=== PATIENT | male | born 1940 | race Caucasian/White ===

== ENCOUNTER 2018-08-15 12:23 | Inpatient (IN) | payer MEDICARE ==
[~2018-08-15 12:23] MED LIST: ISOVUE-370 76%-LOCM 1 ML ONE
[2018-08-15] MEDS ORDERED: fentaNYL Citrate/PF 2,000 MCG in Sodium Chloride 0.9% 60 ML IV SCH ×2 (12:30→18:06)
[2018-08-15 12:41] LABS: #Lymphocytes 1.9 thou/uL (1.20-3.40); #Monocytes 0.8 thou/uL (0.11-0.59); #Neutrophils 9.7 thou/uL (1.40-6.50); %Basophils 0.1 % (0.0-1.0); %Eosinophils 0.2 % (0.0-10.0); %Lymphocytes 15.4 % (21.0-51.0); %Monocytes 6.5 % (0.0-10.0); %Neutrophils 77.8 % (42.0-75.0); Hemoglobin 9.5 g/dL (14.0-18.0); Mean Corpuscular HGB CONC 31.2 g/dL (32.0-36.0); Mean Corpuscular Hemoglobin 29.5 pg (27.0-31.0); Mean Corpuscular Volume 94.5 fL (78.0-98.0); Mean Platelet Volume 6.1 fL (7.4-10.4); Platelet Count 284 thou/uL (130-400); RBC Distribution Width 13.1 % (11.5-14.5); Red Blood Cell (RBC) Count 3.21 mill/uL (4.70-6.10); White Blood Cell (WBC) Count 12.5 thou/uL (4.8-10.8)
[2018-08-15 12:56] LABS: Actual Bicarbonate (HCO3a) 18.1 mEq/L (22-28); Analyzer IN Cardio ER; Base Excess (BEa) -9.1 mEq/L (-2.0 to +3.0); CO2 Tension 44.8 mmHg (35.0-45.0); Calcium, Ionized 1.12 mmol/L (1.12-1.30); Carboxyhemoglobin (COHb) 0.9 gm% (0.0-3.0); Hemoglobin (Hb) 10.5 g/dL (14.0-18.0); O2 Tension (PaO2) 108.4 mmHg (> 70.0); Potassium - ABG Lab 3.45 mmol/L (3.70-5.30)
[2018-08-15 12:57] LABS: Bilirubin Negative (Negative); Blood, Urine Negative (Negative); Clarity CLEAR (Clear); Glucose, Urine (Dipstick) Negative (Negative); Leukocyte Negative (Negative); Nitrite Negative (Negative); Protein, Urine (Dipstick) Negative (Neg-Trace); Specific Gravity, Urine 1.012 (1.002-1.036)
[2018-08-15 12:58] LABS: ALT (SGPT) 17 U/L (8-55); AST (SGOT) 32 U/L (5-34); Albumin 2.3 g/dL (3.4-4.8); Alkaline Phosphatase 170 U/L (40-150); Anion Gap 15 mmol/L (10-20); BUN (Urea Nitrogen) 12 mg/dL (8.4-25.7); Calc. Creatinine Clearance 0 mL/min (70-130); Calcium 7.5 mg/dL (7.8-10.44); Carbon Dioxide 16 mmol/L (23-31); Chloride 110 mmol/L (98-107); Estimated GFR-MDRD Greater than 90; Globulin 2.3 g/dL (2.4-3.5); Glucose 126 mg/dL (83-110); Potassium 3.7 mmol/L (3.5-5.1); Protein, Total 4.6 g/dL (5.8-8.1); Sodium 137 mmol/L (136-145)
[2018-08-15] MEDS ORDERED: cefTRIAXone\\ROCEPHIN 2 GM VIAL ONE (12:58)
[2018-08-15] MEDS ORDERED: Azithromycin 500 MG VIAL ONE (12:58)
[2018-08-15 12:59] LABS: pH, Arterial 7.23 (7.35-7.45)
[2018-08-15 13:00] LABS: Puncture Site L.R.
--- NOTE | 2018-08-15 13:32 | RAD ---
RADIOGRAPH CHEST 1 VIEW: Date: 08-15-18 Time: 12:35 P.M. HISTORY: 78-year-old male with cough. Status post intubation. COMPARISON: 02-08-16 FINDINGS: There is a new finding of diffuse bilateral patchy mixed interstitial and alveolar infiltrates throug hout all lung parker. There is a confluent mass-like opacity overlying the right parahilar midlung zo ne, and perhaps a larger 6 cm mass overlying the medial aspect of left midlung zone with possible cav itation (versus artifact). No cardiomegaly. An NG tube has been placed with sideport overlying the ex pected region of the EG junction and distal tip in the left upper quadrant. Endotracheal tube is in p lace with distal tip overlying the midthoracic trachea. No cardiomegaly. This is a supine position wh ich would be insensitive for pneumothorax detection. IMPRESSION: 1. Bilateral interstitial and alveolar infiltrates. Possibilities include noncardiogenic pulmonary ed andria and bilateral pneumonia. 2. Possible bilateral pulmonary masses. 3. Recommend CT of the chest for further evaluation. 4. Status post endotracheal tube and nasogastric tube placement. SADIE POS: SHAMIKA
--- NOTE | 2018-08-15 14:07 | CT ---
CT PULMONARY ANGIOGRAM WITH IV CONTRAST AND 3D POST PROCESSING: HISTORY: Respiratory failure. FINDINGS: There is good contrast opacification in the pulmonary arterial vasculature without filling defects to suggest pulmonary embolism. The thoracic aorta is well opacified. There are vascular calcification s. There is no evidence of aneurysmal dilatation or thoracic aortic dissection. No pericardial effusion is seen. There are small bilateral pleural effusions. Adjacent cons olidative changes are present. Emphysematous changes are noted in the lung parker bilaterally. Endo tracheal and nasogastric tubes are present. There is a large area of consolidation in the left lower lobe. IMPRESSION: No CT evidence of pulmonary embolism. POS: C
--- NOTE | 2018-08-15 14:13 | CT ---
CT BRAIN WITHOUT CONTRAST: History: Altered mental status. FINDINGS: There are changes of cortical atrophy and chronic small vessel ischemic disease. The ventricular size is appropriate and the bilateral cisterns patent. No evidence of acute infarct, hemorrhage, midline shift, or abnormal extraaxial fluid collections are seen. The bony calvarium is intact. There is mucosal disease in the paranasal sinuses. IMPRESSION: No CT evidence of acute intracranial process. POS: [facility]
[2018-08-15] MEDS ORDERED: Norepinephrine 8 MG/0.9% NS 250 ML IVPB PRN (14:44)
[2018-08-15] MEDS ORDERED: hydrALAZINE 20 MG/ML VIAL SLOW IVP PRN (14:44)
[2018-08-15] MEDS ORDERED: Bisacodyl 10 MG SUPP PR PRN (14:44)
[2018-08-15] MEDS ORDERED: Acetaminophen 325 MG TAB PER TUBE PRN (14:44)
[2018-08-15] MEDS ORDERED: Metoclopramide HCl 10 MG/2 ML VIAL IVP PRN (14:44)
[2018-08-15] MEDS ORDERED: Loratadine 10 MG TAB PER TUBE PRN (14:44)
[2018-08-15] MEDS ORDERED: Ondansetron PF 4 MG/2 ML Vial IVP PRN (14:44)
[2018-08-15] MEDS ORDERED: Artificial Tear Sol 15 ML BOT EA EYE PRN (14:44)
[2018-08-15] MEDS ORDERED: Sodium Chloride 0.65% Nasal 44 ML BOT EA NARE PRN (14:44)
[2018-08-15] MEDS ORDERED: Eucerin (Mineral Oil/Petrolatum,White) 30 gm Jar TOP PRN (14:44)
[2018-08-15] MEDS ORDERED: Diabetic Tussin 200 MG/10 ML UDCUP PER TUBE PRN (14:44)
--- NOTE | 2018-08-15 15:01 | HP ---
PRIMARY CARE PHYSICIAN: Carl Moran MD REASON FOR ADMISSION: Septic shock and acute respiratory failure. HISTORY OF PRESENT ILLNESS: A 78-year-old male with history of heavy smoking as well as peripheral vascular disease, who was brought to ER after intubation by paramedics. The patient's brother and other family member present at bedside in the emergency room, who provided some history. The patient lives with his brother. The patient was having cough for a period of time. He was not having any noted measurable fever at home, but he was coughing junky stuff. Brother is not sure about flu vaccination. As per brother, he was fine yesterday up to his normal level of health. The patient is pretty much wheelchair bound because he offer right above-knee amputation. This morning, the patient was unresponsive and paramedics was called. As per paramedics, his GCS score was only 7 and he was wheezing in both lung parker, and he was saturating only 75%. He was tachypneic, tachycardic, and that is why, paramedics decided to intubate on the scene, and subsequently he was brought to ER. In the emergency room, the patient was initially vitals stable. He was tachycardic and tachypneic on vent. He was afebrile, but his blood pressure dropped and required central line placement. REVIEW OF SYSTEMS: All review of systems tried to review with the patient, but unable to review because of intubated status. 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 PAST SURGICAL HISTORY: History of recurrent pneumonia, back surgery, right above-knee amputation, right hip surgery, and stent placement, unsure in lower extremity or in cardiac. PAST PSYCHIATRIC HISTORY: Reviewed and negative. SOCIAL HISTORY: The patient has heavy smoking history about one pack per day. No history of alcohol or other illicit drug abuse. FAMILY HISTORY: Positive for cancer among several family members. EMERGENCY ROOM COURSE: The patient has received Rocephin, azithromycin, and IV fluid. ALLERGIES: NO KNOWN DRUG ALLERGIES. CURRENT HOME MEDICATIONS: The patient does not have medication with him at this point, but based on the patient's brother, he is taking, 1. Aspirin 81 mg daily. 2. Lipitor 10 mg daily. 3. Metoprolol 25 mg p.o. b.i.d. PHYSICAL EXAMINATION: VITAL SIGNS: Currently, blood pressure 72/50, pulse 106, respiratory rate 17, temperature 97.3, saturation 100% on ventilator, and weight 54 kg. GENERAL: The patient is intubated, currently unresponsive, poorly hygienic. HEAD: Normocephalic and atraumatic. EYES: Pupils small and reactive. ENT: Poor dentition. Endotracheal tube in place. Dry appearing mucous membrane, foul smelling. NECK: Supple. No JVD. No thyromegaly. LUNGS: Bilateral coarse breath sounds with wheezing, end-expiratory. Coarse rales. CARDIAC: S1, S2 regular. Tachycardia. No murmur. No gallop. No rub. ABDOMEN: Soft. Bowel sounds present. No distention. No peritoneal sign. EXTREMITIES: Upper extremities, passive movement of all joints are normal. Lower extremities, right above-knee amputation. Surgical scar noted on right lower extremity. Delayed capillary filling on left lower extremity. Unable to feel pulsation in left lower extremity with toenail unhealthy. NEUROLOGIC: Unable to assess at this point because he is sedated and intubated. SKIN: One bruise noted on left lower extremity. PSYCHIATRIC: Unable to assess. SIGNIFICANT LABORATORY DATA: CT brain based on my review, no acute intracranial process. Chest x-ray based on my review, diffuse bilateral perihilar infiltrates. CT angiography negative for pulmonary embolism, consistent with infiltrative process. CBC: WBC 12.5, hemoglobin 9.5, and platelet 284. ABG, pH 7.23, pCO2 of 44.8, pO2 of 108.4, bicarbonate 18.1, and saturation 95.9. BMP: Sodium 137, potassium 3.7, chloride 110, carbon dioxide 16, anion gap 15, BUN 12, creatinine 0.82, glucose 126, and calcium 7.5. Lactic acid 3.1. LFT: AST 32, ALT 17, alkaline phosphatase 170, and albumin 2.3. Urinalysis unremarkable. ASSESSMENT AND PLAN: 1. Acute respiratory failure with hypoxia. The patient is currently intubated. Pulmonary group will be consulted to manage ventilator because of underlying infiltrative and consolidative process as well as the patient has emphysematous changes in lung parker bilaterally contributing to his respiratory failure. 2. Septic shock. The patient is hypotensive and tachycardic. He has leukocytosis. Source of infection is lung infection. The patient will be kept on broad-spectrum antibiotic therapy. Levophed will be given as needed. The patient will be given IV fluid as per protocol for septic shock. 3. Metabolic and lactic acidosis due to septic shock. We will repeat lactic acid level later on today and as well as tomorrow morning. The patient will be kept on broad-spectrum antibiotic therapy as mentioned above and we will monitor in CCU. 4. Bilateral pneumonia, multifocal, rule out lung abscess. The patient will be kept on broad-spectrum antibiotic therapy with vancomycin, Zosyn, and Levaquin. Pharmacy will adjust dose based on renal function. 5. Chronic obstructive pulmonary disease. We will continue with DuoNeb q.6 hourly. This is not a confirmed diagnosis, but based on emphysema on CT angiography, we will treat with DuoNeb therapy every 6 hourly and Solu-Medrol 40 mg IV q.6 hourly. We will check random cortisol level and TSH as a part of sepsis workup. 6. Hypoalbuminemia due to protein-calorie malnutrition. We will start new enteral tube feeding as early as possible. 7. Peripheral vascular disease with a history of right above-knee amputation with poor pulsation on the left lower extremity as well, likely due to smoking related. At this point, we will continue aspirin and statin therapy. 8. Dyslipidemia. We will continue Lipitor as per home dosage. 9. Tobacco abuse disorder. 10. Deep vein thrombosis prophylaxis, Lovenox 40 mg subcu daily. 11. Gastrointestinal prophylaxis, Pepcid 20 mg IV b.i.d. CODE STATUS: The patient is full code, that is confirmed with the patient's brother and other family member at bedside. CONDITION: Critical. PROGNOSIS: Guarded. TIME SPENT: Total time spent providing critical care to this patient, 31 minutes. Job ID: [id number]
--- NOTE | 2018-08-15 15:41 | RAD ---
CHEST ONE VIEW: History: Tube and central line placement. Comparison: CT examination of the chest, same day. FINDINGS: Patient is intubated with endotracheal tube tip above the evelyn. Superimposed lower lobe pneumonia. IMPRESSION: Uncomplicated placement of lines and tubes as above. POS: [facility]A
[2018-08-15] MEDS: Piperacillin/Tazobactam 3.375 GM in Sodium Chloride 0.9% 100 ML IVPB SCH ×2 (16:36→21:12)
[2018-08-15] MEDS: Sodium Chloride 0.9% 1,000 ML IV SCH (16:36)
[2018-08-15] MEDS: Vancomycin HCl 1 GM in Premix Bag 1 BAG IVPB SCH (16:44)
--- NOTE | 2018-08-15 17:02 | CON ---
DATE OF CONSULTATION: HISTORY OF PRESENT ILLNESS: This is a 78-year-old gentleman, who underwent an aortobifemoral bypass by in 2004 for a nonhealing wound in the right lower extremity involved with polio. He then re-presented in 2016 with a gangrenous right foot and occluded right limb of the aortobifemoral graft. He underwent a right leg amputation by at that time. He followed up in the office on one occasion and then did not follow up further for carotid artery disease with a carotid ultrasound in 2016 demonstrating a 50% to 69% left carotid stenosis. He presented to the emergency room today with altered mental status, elevated white count, and hypotensive. He was intubated, placed on Levophed and I was called due to absent Doppler signals in his left lower extremity that was cold to touch. MEDICATIONS: I have reviewed his CT scan showing advanced emphysematous lung disease bilaterally. He has a CT scan from 2016, which I have reviewed showing a patent left limb of the aortofemoral graft, patent SFA, and significant calcific disease of the popliteal artery in 1 or 2 locations. Chest x-ray today shows bilateral infiltrates. Home medications obtained from the records since the patient is not able to respond and has no family present include; 1. Metoprolol. 2. Inhalers. 3. Sublette. 4. Lipitor. 5. Aspirin. PHYSICAL EXAMINATION: GENERAL: On examination, he is a thin gentleman, intubated, asleep. VITAL SIGNS: Heart rate of 110. NECK: Carotid bruits present. CARDIAC: Tachycardia. No murmurs. ABDOMEN: Scaphoid. Well-healed midline incision. EXTREMITIES: Palpable left femoral pulse, absent right femoral pulse. Doppler signal present biphasic in the popliteal and dorsalis pedis. The left leg is cool to touch with some mottling, probably representing shock state rather than acute ischemia. ASSESSMENT AND PLAN: At this time, I do not think the left lower extremity is probably anything other than baseline for him and certainly is not responsible for his current situation. Job ID: [id number]
[2018-08-15] MEDS: methylPREDNISolone Sod Succ 40 MG VIAL IVP SCH ×2 (17:27→23:54)
[2018-08-15] MEDS ORDERED: Fentanyl BOLUS 250 ML IVPB PRN (18:06)
[2018-08-15] MEDS ORDERED: Propofol 1,000 MG/100 ML VIAL IV PRN (18:06)
[2018-08-15] MEDS ORDERED: Morphine 2 MG/ML SYRINGE SLOW IVP PRN (18:06)
[2018-08-15] MEDS ORDERED: DISCONTINUE PREVIOUS NARCOTIC PAIN MEDICATIONS AND BENZODIAZEPINES FS SCH (18:06)
[2018-08-15] MEDS ORDERED: Propofol BOLUS 1,000 MG/100 ML VIAL IV PRN (18:06)
[2018-08-15] MEDS ORDERED: Lorazepam 2 MG/ML VIAL SLOW IVP PRN (18:06)
--- NOTE | 2018-08-15 20:44 | CON ---
DATE OF CONSULTATION: 08/15/2018 HISTORY OF PRESENT ILLNESS: Hiro Wright is an unfortunate 78-year-old male who underwent a high amputation on the right lower extremity several years back. Apparently, he has been living with his brother since then. He presented today with hypotension and respiratory failure requiring intubation. I was consulted for assistance in the ICU. Apparently, he was fine until this morning when he became unresponsive. PAST MEDICAL HISTORY: Remarkable for 1. Lipid disorder. 2. Hypertension. 3. Polio. 4. Peripheral vascular disease. 5. [id number] amputation on the right. 6. Back surgery in the past. 7. Hip surgery. 8. History of vascular stent at some point. He continues to smoke in spite of his vascular history. REVIEW OF SYSTEMS: Not obtainable. He is not drinking. He is not using drugs reportedly. Reviewing old records, the Dr. Casarez's notes in 2016 say he has had an aortobifemoral bypass. CT angiogram in 2016 of the aorta and lower extremity showed occlusion of the right aortofemoral bypass graft limb. There was chronic collateral reconstitution of the distant common femoral artery with a patent profunda and then severe disease, superficial femoral artery, popliteal artery and only one vessel runoff. Review of systems as mentioned is not obtainable since he is intubated. He is on Levophed. PHYSICAL EXAMINATION: VITAL SIGNS: Pressure was 100 systolic when he arrived in the unit, heart rate was in the 90s, respiratory rate was in the teens. HEENT: Pupils react. Sclerae are anicteric. NECK: Supple. LUNGS: Remarkable for coarse rhonchi, he has copious secretions. HEART: Regular rhythm. He has grade 2/6 systolic murmur. ABDOMEN: Soft. He appears to have a left lower quadrant mass on exam. EXTREMITIES: His right AKA stump is healed. His left lower extremity is extremely mottled, but he has a Doppler pulse in his foot. LABORATORY DATA: White count 12.5, hemoglobin 9.5, platelets 284. Sodium 137, potassium 3.7, chloride 110, bicarb 16, BUN 12, creatinine 0.82. He has virtually anuric today. PH 7.23, CO2 44, PO2 108. CT of the chest with angiogram done in the emergency room shows a dense alveolar infiltrate in his left lower lobe with bilateral effusions. He has no evidence of pulmonary embolism. IMPRESSION: 1. Pneumonia with clinical sepsis. 2. Respiratory failure with probable chronic obstructive pulmonary disease. 3. History of tobacco use, reportedly ongoing with severe peripheral vascular disease status post aortobifemoral bypass and amputation of his right lower extremity, above the knee. 4. ? abdominal mass. 5. Encephalopathy secondary to sepsis, it is unclear whether he was severely hypoxic or not at the scene. We will continue supportive critical care, broad-spectrum antimicrobial therapy, nebulizer treatments, steroids, at some point in time, unless his abdominal mass is stool and goes away with a bowel movement, we need to image his abdomen. Prognosis is quite guarded. CRITICAL CARE TIME: 30 minutes. Job ID: [id number] MTDD
[2018-08-15] MEDS: Famotidine/PF 20 mg/2ml Vial SLOW IVP SCH (21:12)
[2018-08-15] MEDS: Atorvastatin Calcium 10 MG TAB PER TUBE SCH (23:53)
[2018-08-16] MEDS: Sodium Chloride 0.9% 1,000 ML IV SCH ×3 (02:24→23:37)
[2018-08-16] MEDS: Piperacillin/Tazobactam 3.375 GM in Sodium Chloride 0.9% 100 ML IVPB SCH ×4 (02:30→20:58)
[2018-08-16 05:39] LABS: ALT (SGPT) 22 U/L (8-55); AST (SGOT) 41 U/L (5-34); Albumin 2.3 g/dL (3.4-4.8); Alkaline Phosphatase 143 U/L (40-150); Anion Gap 13 mmol/L (10-20); BUN (Urea Nitrogen) 15 mg/dL (8.4-25.7); Bilirubin, Total 0.4 mg/dL (0.2-1.2); Calc. Creatinine Clearance 64 mL/min (70-130); Calcium 8.3 mg/dL (7.8-10.44); Carbon Dioxide 17 mmol/L (23-31); Chloride 112 mmol/L (98-107); Estimated GFR-MDRD Greater than 90; Globulin 2.8 g/dL (2.4-3.5); Glucose 151 mg/dL (83-110); Potassium 4.1 mmol/L (3.5-5.1); Protein, Total 5.1 g/dL (5.8-8.1); Sodium 138 mmol/L (136-145)
[2018-08-16 05:57] LABS: Band 21 % (5-11); Hemoglobin 9.9 g/dL (14.0-18.0); Lymphocytes 14 % (21-51); MDiff Complete? YES; Mean Corpuscular HGB CONC 31.4 g/dL (32.0-36.0); Mean Corpuscular Hemoglobin 29.6 pg (27.0-31.0); Mean Corpuscular Volume 94.2 fL (78.0-98.0); Mean Platelet Volume 6.4 fL (7.4-10.4); Monocytes 3 % (0-10); Neutrophil 62 % (42-75); Platelet Count 249 thou/uL (130-400); RBC Distribution Width 13.3 % (11.5-14.5); Red Blood Cell (RBC) Count 3.35 mill/uL (4.70-6.10); White Blood Cell (WBC) Count 8.3 thou/uL (4.8-10.8)
[2018-08-16] MEDS: methylPREDNISolone Sod Succ 40 MG VIAL IVP SCH ×4 (06:13→23:41)
[2018-08-16 07:39] LABS: Actual Bicarbonate (HCO3a) 18.7 mEq/L (22-28); Base Excess (BEa) -6.1 mEq/L (-2.0 to +3.0); CO2 Tension 34.2 mmHg (35.0-45.0); Calcium, Ionized 1.28 mmol/L (1.12-1.30); Carboxyhemoglobin (COHb) 0.6 gm% (0.0-3.0); Hemoglobin (Hb) 9.9 g/dL (14.0-18.0); O2 Tension (PaO2) 72.2 mmHg (> 70.0); Potassium - ABG Lab 4.09 mmol/L (3.70-5.30); pH, Arterial 7.36 (7.35-7.45)
[2018-08-16 07:44] LABS: Puncture Site RR
--- NOTE | 2018-08-16 07:47 | RAD ---
SINGLE VIEW OF CHEST: Date: 08/16/18 COMPARISON: 08/15/18. HISTORY: Daily chest x-ray on a CCU patient with respiratory failure. FINDINGS: Single view of chest shows a normal sized cardiomediastinal silhouette. Endotracheal tube and NG tube are unchanged in position. There is a left subclavian central venous catheter with its tip in the arenas perior vena cava. No pneumothorax is seen. Diffuse mixed infiltrates are seen in the lungs. IMPRESSION: Stable multifocal infiltrates. POS: C
[2018-08-16] MEDS: Enoxaparin Sodium 40 MG/0.4 ML SYRINGE SC SCH (07:59)
[2018-08-16] MEDS: Famotidine/PF 20 mg/2ml Vial SLOW IVP SCH ×2 (07:59→20:58)
[2018-08-16] MEDS: Aspirin Chewable 81 MG TAB PER TUBE SCH (08:00)
--- NOTE | 2018-08-16 09:54 | PDOC.PN ---
- Subjective Encounter Start Date: 08/16/18 Encounter Start Time: 11:10 Subjective: Patient stable on the vent. No changes overnight. - Objective Resuscitation Status - Order Detail: 08/15/18 14:03 Resuscitation Status Routine Resuscitation Status: FULL: Full Resuscitation MAR Reviewed: Yes Vital Signs & Weight: Vital Signs (12 hours) Temp Pulse Resp BP 08/16/18 08:00 18 08/16/18 07:44 98.3 F 08/16/18 07:36 89 100/57 L 08/16/18 06:00 18 08/16/18 04:00 98.2 F 18 08/16/18 02:16 78 101/60 08/16/18 02:00 18 08/16/18 00:00 99.0 F 18 08/15/18 22:14 83 106/62 08/15/18 22:00 18 Weight Weight 115 lb 1.301 oz Most Recent Monitor Data Heart Rate from ECG 75 NIBP 98/56 NIBP BP-Mean 70 Respiration from ECG 18 SpO2 97 I&O: 08/15/18 08/16/18 08/17/18 06:59 06:59 06:59 Intake Total 1892.6 46.1 Output Total 650 50 Balance 1242.6 -3.9 Result Diagrams: 08/16/18 05:05 08/16/18 05:05 Phys Exam - Physical Examination HEENT: moist MMs Respiratory: no wheezing, no rales, no rhonchi Cardiovascular: RRR Gastrointestinal: soft, positive bowel sounds right AKA Neurological: moves all 4 limbs Deviation from normal: sedated by arousable on vent Dx/Plan (1) Acute respiratory failure with hypoxia Code(s): J96.01 - ACUTE RESPIRATORY FAILURE WITH HYPOXIA Status: Acute Comment: on the ventilator, Dr. Rose following (2) Septic shock Code(s): A41.9 - SEPSIS, UNSPECIFIED ORGANISM; R65.21 - SEVERE SEPSIS WITH SEPTIC SHOCK Status: Acute Comment: Hypotension requiring Levophed, on Vanc and Zosyn since 08/15/2018 (3) Lactic acidosis Code(s): E87.2 - ACIDOSIS Status: Resolved (4) Bacterial pneumonia Code(s): J15.9 - UNSPECIFIED BACTERIAL PNEUMONIA Status: Acute (5) COPD (chronic obstructive pulmonary disease) Status: Acute Qualifiers: COPD type: COPD with acute exacerbation Qualified Code(s): J44.1 - Chronic obstructive pulmonary disease with (acute) exacerbation (6) Moderate protein-calorie malnutrition Code(s): E44.0 - MODERATE PROTEIN-CALORIE MALNUTRITION Status: Acute (7) Peripheral vascular disease Code(s): I73.9 - PERIPHERAL VASCULAR DISEASE, UNSPECIFIED Status: Chronic Comment: no acute ischemia of remaining leg per Dr. Whatley (8) Dyslipidemia Code(s): E78.5 - HYPERLIPIDEMIA, UNSPECIFIED Status: Chronic (9) Tobacco abuse disorder Code(s): Z72.0 - TOBACCO USE Status: Chronic - Plan cont current plan of care, continue antibiotics, respiratory therapy, DVT proph w/lovenox, DVT proph w/SCDs * . - Discharge Day Encounter end time: 11:20 Pulmonology Consult: Meds - Medications MAR Reviewed: Yes Medications: Current Medications Acetaminophen (Tylenol) 650 mg PER TUBE Q4H PRN PRN Reason: Headache/Fever/Mild Pain (1-3) Albuterol/Ipratropium (Duoneb) 3 ml NEB [id number] [facility] Last Admin: 08/16/18 07:02 Dose: 3 ml Artificial Tears (Tears Renewed 15ml Bottle) 2 drop EA EYE PRN PRN PRN Reason: Dry Eyes Aspirin (Aspirin Chewable) 81 mg PER TUBE DAILY [facility] Last Admin: 08/16/18 08:00 Dose: 81 mg Atorvastatin Calcium (Lipitor) 10 mg PER TUBE HS [facility] Last Admin: 08/15/18 23:53 Dose: 10 mg Bisacodyl (Dulcolax) 10 mg AL DAILYPRN PRN PRN Reason: Constipation Enoxaparin Sodium (Lovenox) 40 mg SC 0900 [facility] Last Admin: 08/16/18 07:59 Dose: 40 mg Famotidine (Pepcid) 20 mg SLOW IVP Q12HR [facility] Last Admin: 08/16/18 07:59 Dose: 20 mg Guaifenesin (Robitussin Sf) 200 mg PER TUBE Q4H PRN PRN Reason: Cough Hydralazine HCl (Apresoline) 10 mg SLOW IVP Q4H PRN PRN Reason: SBP > 180 and HR < 70 Piperacillin Sod/Tazobactam (Sod 3.375 gm/ Sodium Chloride) 100 mls @ 200 mls/ hr IVPB 0300,0900,1500,2100 [facility] Last Admin: 08/16/18 07:59 Dose: 100 mls Vancomycin HCl 1 gm/ Device 200 mls @ 200 mls/hr IVPB 1700 [facility] Last Admin: 08/15/18 16:44 Dose: Not Given Levofloxacin 500 mg/ Device 100 mls @ 100 mls/hr IVPB Q24HR [facility] Last Admin: 08/15/18 16:44 Dose: 100 mls Norepinephrine Bitartrate (Levophed) 250 mls @ 0 mls/hr IVPB PRN PRN; Protocol PRN Reason: To maintain MAP > 65 Sodium Chloride (Normal Saline 0.9%) 1,000 mls @ 125 mls/hr IV .Q8H [facility] Last Admin: 08/16/18 02:24 Dose: 1,000 mls Fentanyl Citrate 2,000 mcg/ (Sodium Chloride) 100 mls @ 0 mls/hr IV INF [facility]; Protocol Stop: 09/14/18 18:06 Last Admin: 08/15/18 20:19 Dose: 100 mls Fentanyl Citrate (Fentanyl Bolus) 250 mls @ 0 mls/hr IVPB PRN PRN PRN Reason: Breakthrough pain/agitation Stop: 09/14/18 18:06 Loratadine (Claritin) 10 mg PER TUBE DAILYPRN PRN PRN Reason: Sinus Symptoms Lorazepam (Ativan) 2 mg SLOW IVP Q1H PRN PRN Reason: Breakthrough agitation Stop: 09/14/18 18:06 Methylprednisolone Sodium Succinate (Solu-Medrol) 40 mg IVP Q6HR [facility] Last Admin: 08/16/18 06:13 Dose: 40 mg Metoclopramide HCl (Reglan) 5 mg IVP Q4H PRN PRN Reason: Nausea Mineral Oil/White Petrolatum (Eucerin Cream) 0 gm TOP BIDPRN PRN PRN Reason: Dry Skin Miscellaneous Medication (Pharmacy To Dose) 1 each IVPB PRN PRN PRN Reason: Pharmacy to dose Morphine Sulfate (Morphine) 2 mg SLOW IVP Q1H PRN PRN Reason: BREAKTHROUGH PAIN/Agitation Stop: 09/14/18 18:06 Discontinue Previous Narcotic Pain Medications And Benzodiazepines 1 each FS .ONE [facility] Stop: 09/14/18 18:06 Ondansetron HCl (Zofran) 4 mg IVP Q6H PRN PRN Reason: Nausea/Vomiting Propofol (Diprivan) 1,000 mg IV INF PRN; Protocol PRN Reason: TO ACHIEVE GOAL RASS Stop: 09/14/18 18:06 Propofol (Diprivan Bolus) 20 mg IV Q5MIN PRN PRN Reason: BREAKTHROUGH AGITATION Stop: 09/14/18 18:06 Sodium Chloride ([place] Nasal Kathryn 0.65%) 0 ml EA NARE QIDPRN PRN PRN Reason: Nasal Congestion - Allergies Allergies/Adverse Reactions: Allergies Allergy/AdvReac Type Severity Reaction Status Date / Time No Known Allergies Allergy Verified 08/15/18 17:15
--- NOTE | 2018-08-16 17:03 | PRG ---
DATE OF SERVICE: 08/16/2018 SUBJECTIVE: Hiro Wright is really rallied overnight. He is off pressors this morning. OBJECTIVE: VITAL SIGNS: Blood pressure is in the 120s, heart rate 83, respiratory rate 18, oximetry is 97. Intake and output +1242. GENERAL: He will remain mechanically ventilated. He is awake. He moves extremities equally with the exception of his right lower extremity. LUNGS: Remarkable for dramatically improved rhonchi compared to yesterday. HEART: Regular rhythm. ABDOMEN: Soft. EXTREMITIES: Left lower extremity is cool. LABORATORY DATA: White count 8.3, hemoglobin 9.9, platelets 249. Sodium 138, potassium 4.1, chloride 112, bicarb 17, BUN 15, creatinine 0.73, glucose 151. IMPRESSION: 1. Pneumonia with respiratory failure, most likely secondary to his inability to clear secretions. 2. Chronic obstructive pulmonary disease with ongoing tobacco use. 3. Cachexia. 4. Status post high amputation of his right lower extremity secondary to peripheral vascular disease after a failed aortobifem bypass. 5. Mild hyperchloremic acidosis. PH today 7.36, CO2 is 34, pO2 is 72. 6. Bilateral infiltrates on today's chest x-ray. 7. I suspect we will be able to do a spontaneous breathing trial in the morning. I met with brothers and answered all their questions. One of his brothers is a patient of mine. Overall I am pleased with his progress. CRITICAL CARE TIME: 30 minutes. Job ID: [id number]
[2018-08-16] MEDS: Vancomycin HCl 1 GM in Premix Bag 1 BAG IVPB SCH (18:16)
[2018-08-16] MEDS: Atorvastatin Calcium 10 MG TAB PER TUBE SCH (20:58)
[2018-08-17] MEDS: Piperacillin/Tazobactam 3.375 GM in Sodium Chloride 0.9% 100 ML IVPB SCH ×4 (02:20→21:35)
[2018-08-17] MEDS: methylPREDNISolone Sod Succ 40 MG VIAL IVP SCH ×3 (05:04→20:06)
[2018-08-17 05:19] LABS: ALT (SGPT) 19 U/L (8-55); AST (SGOT) 30 U/L (5-34); Albumin 2.4 g/dL (3.4-4.8); Alkaline Phosphatase 101 U/L (40-150); Anion Gap 12 mmol/L (10-20); BUN (Urea Nitrogen) 14 mg/dL (8.4-25.7); Bilirubin, Total 0.4 mg/dL (0.2-1.2); Calc. Creatinine Clearance 79 mL/min (70-130); Calcium 8.5 mg/dL (7.8-10.44); Carbon Dioxide 17 mmol/L (23-31); Chloride 115 mmol/L (98-107); Estimated GFR-MDRD Greater than 90; Globulin 2.6 g/dL (2.4-3.5); Glucose 130 mg/dL (83-110); Potassium 3.2 mmol/L (3.5-5.1); Sodium 141 mmol/L (136-145)
[2018-08-17 05:35] LABS: Band 14 % (5-11); Burr Cells SLIGHT = 2-5 cells (100X) (0-1/hpf); Hemoglobin 9.2 g/dL (14.0-18.0); Lymphocytes 4 % (21-51); MDiff Complete? YES; Mean Corpuscular HGB CONC 31.2 g/dL (32.0-36.0); Mean Corpuscular Hemoglobin 29.5 pg (27.0-31.0); Mean Corpuscular Volume 94.6 fL (78.0-98.0); Mean Platelet Volume 6.5 fL (7.4-10.4); Monocytes 6 % (0-10); Neutrophil 76 % (42-75); Platelet Count 199 thou/uL (130-400); RBC Distribution Width 13.4 % (11.5-14.5); White Blood Cell (WBC) Count 7.1 thou/uL (4.8-10.8)
[2018-08-17 06:44] LABS: Actual Bicarbonate (HCO3a) 20.2 mEq/L (22-28); Base Excess (BEa) -3.8 mEq/L (-2.0 to +3.0); CO2 Tension 32.3 mmHg (35.0-45.0); Calcium, Ionized 1.27 mmol/L (1.12-1.30); Carboxyhemoglobin (COHb) 0.5 gm% (0.0-3.0); Hemoglobin (Hb) 9.5 g/dL (14.0-18.0); O2 Tension (PaO2) 86.5 mmHg (> 70.0); Potassium - ABG Lab 3.18 mmol/L (3.70-5.30); pH, Arterial 7.41 (7.35-7.45)
[2018-08-17 06:45] LABS: ALV-art Gradient 87.025 (0-20); Puncture Site RRA
[2018-08-17] MEDS: Aspirin Chewable 81 MG TAB PER TUBE SCH (08:03)
[2018-08-17] MEDS: Famotidine/PF 20 mg/2ml Vial SLOW IVP SCH ×2 (08:04→21:36)
[2018-08-17] MEDS: Enoxaparin Sodium 40 MG/0.4 ML SYRINGE SC SCH (08:04)
[2018-08-17] MEDS: Sodium Chloride 0.9% 1,000 ML IV SCH ×3 (08:05→21:35)
--- NOTE | 2018-08-17 08:33 | PDOC.PN ---
- Subjective Encounter Start Date: 08/17/18 Encounter Start Time: 09:40 Subjective: Patient extubated this morning. Feeling well. No SOB. No N/V. No -: chest pain. Off Levophed. - Objective Resuscitation Status - Order Detail: 08/15/18 14:03 Resuscitation Status Routine Resuscitation Status: FULL: Full Resuscitation MAR Reviewed: Yes Vital Signs & Weight: Vital Signs (12 hours) Temp Pulse Resp BP Pulse Ox 08/17/18 08:07 99 08/17/18 07:15 82 119/66 08/17/18 06:00 18 08/17/18 05:00 97.3 F L 08/17/18 04:00 18 08/17/18 03:13 100 08/17/18 03:00 97.5 F L 08/17/18 02:44 70 111/62 08/17/18 02:00 18 08/17/18 00:00 97.6 F 18 100 08/16/18 22:14 65 119/66 08/16/18 22:00 97.5 F L 18 Weight Admit Weight 115 lb 1.28 oz Weight 119 lb 0.794 oz Most Recent Monitor Data Heart Rate from ECG 99 NIBP 125/82 NIBP BP-Mean 96 Respiration from ECG 12 SpO2 91 I&O: 08/16/18 08/17/18 08/18/18 06:59 06:59 06:59 Intake Total 1892.6 3249.3 8 Output Total 650 652 45 Balance 1242.6 2597.3 -37 Result Diagrams: 08/17/18 03:50 08/17/18 03:50 Phys Exam - Physical Examination Constitutional: NAD HEENT: moist MMs Respiratory: no wheezing, no rales some coarse breath sounds, decent air movement throughout Cardiovascular: RRR, no significant murmur Gastrointestinal: soft, positive bowel sounds Neurological: non-focal, moves all 4 limbs Psychiatric: normal affect, A&O x 3 Dx/Plan (1) Acute respiratory failure with hypoxia Code(s): J96.01 - ACUTE RESPIRATORY FAILURE WITH HYPOXIA Status: Acute Comment: extubated 07/20/2018 (2) Septic shock Code(s): A41.9 - SEPSIS, UNSPECIFIED ORGANISM; R65.21 - SEVERE SEPSIS WITH SEPTIC SHOCK Status: Acute Comment: Hypotension requiring Levophed now resolved, on Vanc and Zosyn since 08/15/2018 (3) Lactic acidosis Code(s): E87.2 - ACIDOSIS Status: Resolved (4) Bacterial pneumonia Code(s): J15.9 - UNSPECIFIED BACTERIAL PNEUMONIA Status: Acute (5) COPD (chronic obstructive pulmonary disease) Status: Acute Qualifiers: COPD type: COPD with acute exacerbation Qualified Code(s): J44.1 - Chronic obstructive pulmonary disease with (acute) exacerbation (6) Moderate protein-calorie malnutrition Code(s): E44.0 - MODERATE PROTEIN-CALORIE MALNUTRITION Status: Acute (7) Peripheral vascular disease Code(s): I73.9 - PERIPHERAL VASCULAR DISEASE, UNSPECIFIED Status: Chronic Comment: no acute ischemia of remaining leg per Dr. Whatley (8) Dyslipidemia Code(s): E78.5 - HYPERLIPIDEMIA, UNSPECIFIED Status: Chronic (9) Tobacco abuse disorder Code(s): Z72.0 - TOBACCO USE Status: Chronic - Plan cont current plan of care, continue antibiotics, PT/OT, respiratory therapy, DVT proph w/lovenox * . - Discharge Day Encounter end time: 09:50
--- NOTE | 2018-08-17 09:00 | RAD ---
AP CHEST: History: Ventilator dependent patient. Date: 08-17-18 Comparison: 08-16-18 FINDINGS: AP chest demonstrates nasogastric and endotracheal tubes to be in good position. The left subclavian central line is in place, the distal tip overlying the SVC. Diffuse interstitial markings seen throughout the lung bases compatible with interstitial fibrotic ch anges. Pulmonary vascular congestion seen. IMPRESSION: 1. Stable AP chest with chronic fibrotic changes seen in the lung bases. No acute intrathoracic abnor mality seen. POS: [facility]
--- NOTE | 2018-08-17 09:15 | PRG ---
DATE OF SERVICE: 08/17/2018 SUBJECTIVE: Mr. Wright is awake and alert. OBJECTIVE: GENERAL: He is in no distress. VITAL SIGNS: Heart rate 82, blood pressure 119/66, oximetry is in the high 90s. LUNGS: Remarkable for decreased breath sounds at the left base with some crackles. HEART: Regular rhythm. ABDOMEN: Soft and nontender. EXTREMITIES: Without clubbing, cyanosis, or edema. IMAGING DATA: Chest x-ray reviewed by me shows bilateral increase in interstitial markings, more of an alveolar filling process at the left base. LABORATORY DATA: White count 7.1, hemoglobin 9.2, and platelets 199. Sodium 141, potassium 3.2, chloride 115, bicarb 17, BUN 14, creatinine 0.6. pH 7.41, CO2 of 32, pO2 of 86 on 30%. He passed spontaneous breathing trial this morning. His minute volume is about 7 L a minute on 5 of pressure support and 5 of PEEP. If he passes a leak test, he should be extubatable. IMPRESSION AND PLAN: 1. Community-acquired pneumonia. 2. Inability to clear secretions. 3. Chronic obstructive pulmonary disease. 4. ? Interstitial edema, cardiogenic versus noncardiogenic. 5. Transient ischemia of his left lower extremity with his pneumonia and intravascular volume depletion that is improved. We will have an echocardiogram done. He will be weaned and extubated. He will remain in the critical care unit probably for another 24 hours. Critical care time is 35 minutes. Job ID: [id number] MTDD
--- NOTE | 2018-08-17 14:14 | PQF ---
DATE: 08-17-18 ATTN: DR. DOUG GAONA Please exercise your independent, professional judgment in responding to the clarification form. Clinical indicators are provided on the bottom of this form for your review Please check appropriate box(s): [ X ] Encephalopathy: Type: [ X ] Acute [ ] Subacute [ ] Chronic Etiology: [ X ] Metabolic [ ] Toxic [ X ] Hypoxic [ ] Septic [ ] Drug induced: [ ] Transient Alteration of Awareness [ ] Other diagnosis [ ] Unable to determine In addition, please specify: Present on Admission (POA): [ X ] Yes [ ] No [ ] Unable to determine For continuity of documentation, please document condition throughout progress notes and discharge summary. Thank You. CLINICAL INDICATORS - SIGNS / SYMPTOMS / LABS ER DX: RESP FAILURE, HYPOTENSION, ISCHEMIA LEFT LOWER EXTREMITY, PNA, SEPTIC SHOCK ER: EMS REPORTS THEY WERE INITIALLY CALLED DUE TO PT BEING UNRESPONSIVE AND REPORTS INITIAL [facility] OF 7. H&P: PT IS INTUBATED, CURRENTLY UNRESPONSIVE, ACUTE RESP FAILURE WITH HYPOXIA , SEPTIC SHOCK, METABOLIC AND LACTIC ACIDOSIS, BILATERAL PNEUMONIA CONSULT NOTED DR. HERNANDEZ 08-15-18: ENCEPHALOPATHY SECONDARY TO SEPSIS, IT IS UNCLEAR WHETHER HE WAS SEVERELY HYPOXIC OR NOT AT SCENE. RISK FACTORS: H&P: PT IS INTUBATED, CURRENTLY UNRESPONSIVE, ACUTE RESP FAILURE WITH HYPOXIA , SEPTIC SHOCK, METABOLIC AND LACTIC ACIDOSIS, BILATERAL PNEUMONIA TREATMENTS: H&P: PT IS INTUBATED, CURRENTLY UNRESPONSIVE, ACUTE RESP FAILURE WITH HYPOXIA , SEPTIC SHOCK, METABOLIC AND LACTIC ACIDOSIS, BILATERAL PNEUMONIA ER: LEVOPHED, AZITHROMYCIN, CEFTRIAXONE (This form is maintained as a part of the permanent medical record) 2014 [employer], [employer]. All Rights Reserved [email or web address] Office: [phone] [facility]
[2018-08-17] MEDS: Vancomycin HCl 1 GM in Premix Bag 1 BAG IVPB SCH (16:15)
[2018-08-17 17:07] LABS: Vancomycin, Trough 6.4 ug/mL
[2018-08-17] MEDS: Atorvastatin Calcium 10 MG TAB PER TUBE SCH (21:38)
[2018-08-18] MEDS: methylPREDNISolone Sod Succ 40 MG VIAL IVP SCH ×4 (00:02→21:24)
[2018-08-18] MEDS: Piperacillin/Tazobactam 3.375 GM in Sodium Chloride 0.9% 100 ML IVPB SCH ×4 (03:46→21:24)
[2018-08-18] MEDS: Vancomycin HCl 1 GM in Premix Bag 1 BAG IVPB SCH ×2 (04:49→17:41)
[2018-08-18] MEDS: Sodium Chloride 0.9% 1,000 ML IV SCH (04:50)
[2018-08-18 05:39] LABS: Band 21 % (5-11); Lymphocytes 4 % (21-51); MDiff Complete? YES; Mean Corpuscular HGB CONC 32.2 g/dL (32.0-36.0); Mean Corpuscular Hemoglobin 30.1 pg (27.0-31.0); Mean Corpuscular Volume 93.6 fL (78.0-98.0); Mean Platelet Volume 6.8 fL (7.4-10.4); Monocytes 3 % (0-10); Neutrophil 72 % (42-75); Nucleated RBC 1 % (0); Platelet Count 230 thou/uL (130-400); Platelet Morphology Comment Appears Adequate; RBC Distribution Width 13.4 % (11.5-14.5); Red Blood Cell (RBC) Count 2.99 mill/uL (4.70-6.10); White Blood Cell (WBC) Count 7.9 thou/uL (4.8-10.8)
[2018-08-18 05:46] LABS: ALT (SGPT) 18 U/L (8-55); AST (SGOT) 33 U/L (5-34); Albumin 2.6 g/dL (3.4-4.8); Alkaline Phosphatase 91 U/L (40-150); Anion Gap 12 mmol/L (10-20); BUN (Urea Nitrogen) 10 mg/dL (8.4-25.7); Bilirubin, Total 0.5 mg/dL (0.2-1.2); Calc. Creatinine Clearance 86 mL/min (70-130); Calcium 8.7 mg/dL (7.8-10.44); Carbon Dioxide 17 mmol/L (23-31); Chloride 118 mmol/L (98-107); Estimated GFR-MDRD Greater than 90; Globulin 2.5 g/dL (2.4-3.5); Glucose 100 mg/dL (83-110); Protein, Total 5.1 g/dL (5.8-8.1); Sodium 144 mmol/L (136-145)
[2018-08-18 05:48] LABS: Potassium 2.8 mmol/L (3.5-5.1)
[2018-08-18] MEDS ORDERED: Potassium Phosphate 12 MMOL in Sodium Chloride 0.9% 250 ML 250 ML IV PRN (06:19)
[2018-08-18] MEDS ORDERED: Magnesium 2 GM/50 ML 2 GM in Premix Bag 1 BAG IVPB PRN (06:19)
[2018-08-18] MEDS ORDERED: Potassium Phosphate 15 MMOL in Sodium Chloride 0.9% 250 ML 250 ML IV PRN (06:19)
[2018-08-18] MEDS ORDERED: CCU ELECTROLYTE REPLACEMENT PROTOCOL FS PRN (06:19)
[2018-08-18] MEDS ORDERED: Potassium Phosphate 9 MMOL in Sodium Chloride 0.9% 100 ML IVPB PRN (06:19)
[2018-08-18] MEDS ORDERED: Potassium Chloride 20 MEQ TAB PO PRN (06:19)
[2018-08-18] MEDS ORDERED: Potassium Chloride 40 MEQ in Sodium Chloride 0.9% 250 ML 250 ML IVPB PRN (06:19)
[2018-08-18] MEDS ORDERED: Potassium Chloride 40 MEQ in Premix Bag 1 BAG IVPB PRN (06:19)
[2018-08-18] MEDS ORDERED: Magnesium Oxide 400 MG TAB PO PRN ×2 (06:19)
--- NOTE | 2018-08-18 08:30 | RAD ---
AP CHEST: History: Ventilator dependent patient. Date: 08-18-18 Comparison: 08-17-18 FINDINGS: AP chest demonstrates removal of the nasogastric tube and endotracheal tubes. Left subclavian central line is seen. Diffuse interstitial markings seen compatible with lung fibrotic changes, unchanged si nce the previous exam. Pulmonary vascular congestion is seen. No evidence of pneumothorax is seen. IMPRESSION: Removal of the NG tube and endotracheal tubes. POS: [facility]
[2018-08-18] MEDS: Enoxaparin Sodium 40 MG/0.4 ML SYRINGE SC SCH (09:52)
[2018-08-18] MEDS: Famotidine/PF 20 mg/2ml Vial SLOW IVP SCH ×2 (09:53→21:24)
[2018-08-18] MEDS: Aspirin Chewable 81 MG TAB PER TUBE SCH (09:54)
--- NOTE | 2018-08-18 11:16 | PRG ---
DATE OF SERVICE: 08/18/2018 SUBJECTIVE: Hiro Wright is stable, but intermittently having difficulty clearing his secretions. OBJECTIVE: VITAL SIGNS: His oximetry is 99 on 2 L, heart rate is 105 to 110, this morning blood pressure 147/85, respiratory rate 16. HEENT: Intake and outputs are positive at 2623. He had 2670 to 2680 on yesterday on IV fluids. LUNGS: Remarkable for rhonchi. Improved with coughing. HEART: Regular rhythm. S1 and S2 normal. ABDOMEN: Soft and nontender. EXTREMITIES: Without clubbing, cyanosis, or edema. LABORATORY DATA: White count 7.9, hemoglobin 9, platelets 230. Sodium 144, potassium 2.8, chloride 118, bicarb 17, BUN 10, creatinine 0.56. IMPRESSION: 1. Pneumonia. 2. Status post mechanical ventilation for respiratory failure, associated with pneumonia with difficulty clearing his secretions. 3. 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 4. Ongoing heavy tobacco use. 5. Normal left ventricular ejection fraction. 6. Mild pulmonary edema by x-ray, likely noncardiogenic edema. 7. His IV fluids will be decreased. 8. We will keep him in the critical care unit for now. 9. Deconditioning. I have explained to family his biggest factor. I have asked family to talk about code status as well. We will continue to follow. His antimicrobial therapy can be switched to p.o. antimicrobials if he passes his speech/swallowing evaluation today. Job ID: [id number]
--- NOTE | 2018-08-18 11:53 | PDOC.PN ---
- Subjective Encounter Start Date: 08/18/18 Encounter Start Time: 07:30 -: old records requested/rev Patient seen and examined. No new complaints. No overnight events pt has cough, he is not safe for oral intake - Objective Resuscitation Status - Order Detail: 08/15/18 14:03 Resuscitation Status Routine Resuscitation Status: FULL: Full Resuscitation MAR Reviewed: Yes Vital Signs & Weight: Vital Signs (12 hours) Temp Pulse Pulse Resp BP Pulse Ox Pulse Ox 08/18/18 08:56 119 H 144/81 H 98 08/18/18 08:00 99 08/18/18 07:02 98 08/18/18 07:00 97.6 F 101 H 15 98 08/18/18 04:00 98.9 F 08/18/18 02:57 115 H 16 96 08/18/18 00:00 98.4 F Weight Admit Weight 115 lb 1.28 oz Weight 119 lb 0.794 oz Most Recent Monitor Data Heart Rate from ECG 112 NIBP 136/82 NIBP BP-Mean 100 Respiration from ECG 23 SpO2 98 I&O: 08/17/18 08/18/18 08/19/18 06:59 06:59 06:59 Intake Total 3249.3 3286 Output Total 652 663 210 Balance 2597.3 2623 -210 Result Diagrams: 08/18/18 04:14 08/18/18 04:14 Phys Exam - Physical Examination Constitutional: NAD HEENT: PERRLA, sclera anicteric Neck: no JVD, supple Respiratory: no wheezing, no rhonchi bilateral coarse rales Cardiovascular: RRR, no significant murmur, no rub Gastrointestinal: soft, non-tender, no distention, positive bowel sounds Musculoskeletal: no edema Neurological: non-focal, normal sensation Lymphatic: no nodes Psychiatric: normal affect Skin: no rash, normal turgor Dx/Plan (1) Acute respiratory failure with hypoxia Code(s): J96.01 - ACUTE RESPIRATORY FAILURE WITH HYPOXIA Status: Acute Comment: extubated 07/20/2018 (2) Bacterial pneumonia Code(s): J15.9 - UNSPECIFIED BACTERIAL PNEUMONIA Status: Acute (3) COPD (chronic obstructive pulmonary disease) Status: Chronic Qualifiers: COPD type: COPD with acute exacerbation Qualified Code(s): J44.1 - Chronic obstructive pulmonary disease with (acute) exacerbation (4) Dyslipidemia Code(s): E78.5 - HYPERLIPIDEMIA, UNSPECIFIED Status: Chronic (5) Moderate protein-calorie malnutrition Code(s): E44.0 - MODERATE PROTEIN-CALORIE MALNUTRITION Status: Chronic (6) Peripheral vascular disease Code(s): I73.9 - PERIPHERAL VASCULAR DISEASE, UNSPECIFIED Status: Chronic Comment: no acute ischemia of remaining leg per Dr. Whatley (7) Tobacco abuse disorder Code(s): Z72.0 - TOBACCO USE Status: Chronic (8) Lactic acidosis Code(s): E87.2 - ACIDOSIS Status: Resolved (9) Septic shock Code(s): A41.9 - SEPSIS, UNSPECIFIED ORGANISM; R65.21 - SEVERE SEPSIS WITH SEPTIC SHOCK Status: Resolved Comment: Hypotension requiring Levophed now resolved, on Vanc and Zosyn since 08/15/2018 - Plan cont current plan of care, plan discussed w/ family, continue antibiotics, speech therapy, respiratory therapy * continue vancomycin, zosyn and levaquin * palliative care consult * discussed with family * medication reviewed as below * symptomatic treatment. * continue solumedrol Review of Systems - Review of Systems Other: not reliable due to pt's level of cognitive status - Medications/Allergies Allergies/Adverse Reactions: Allergies Allergy/AdvReac Type Severity Reaction Status Date / Time No Known Allergies Allergy Verified 08/15/18 17:15 Medications: Current Medications Acetaminophen (Tylenol) 650 mg PER TUBE Q4H PRN PRN Reason: Headache/Fever/Mild Pain (1-3) Albuterol/Ipratropium (Duoneb) 3 ml NEB [id number] [facility] Last Admin: 08/18/18 07:00 Dose: 3 ml Artificial Tears (Tears Renewed 15ml Bottle) 2 drop EA EYE PRN PRN PRN Reason: Dry Eyes Aspirin (Aspirin Chewable) 81 mg PER TUBE DAILY [facility] Last Admin: 08/18/18 09:54 Dose: Not Given Atorvastatin Calcium (Lipitor) 10 mg PER TUBE HS [facility] Last Admin: 08/17/18 21:38 Dose: Not Given Bisacodyl (Dulcolax) 10 mg IA DAILYPRN PRN PRN Reason: Constipation Enoxaparin Sodium (Lovenox) 40 mg SC 0900 [facility] Last Admin: 08/18/18 09:52 Dose: 40 mg Famotidine (Pepcid) 20 mg SLOW IVP Q12HR [facility] Last Admin: 08/18/18 09:53 Dose: 20 mg Guaifenesin (Robitussin Sf) 200 mg PER TUBE Q4H PRN PRN Reason: Cough Hydralazine HCl (Apresoline) 10 mg SLOW IVP Q4H PRN PRN Reason: SBP > 180 and HR < 70 Piperacillin Sod/Tazobactam (Sod 3.375 gm/ Sodium Chloride) 100 mls @ 200 mls/ hr IVPB 0300,0900,1500,2100 [facility] Last Admin: 08/18/18 09:52 Dose: 100 mls Levofloxacin 500 mg/ Device 100 mls @ 100 mls/hr IVPB Q24HR [facility] Last Admin: 08/17/18 16:13 Dose: 100 mls Vancomycin HCl 1 gm/ Device 200 mls @ 200 mls/hr IVPB 0500,1700 [facility] Last Admin: 08/18/18 04:49 Dose: 200 mls Potassium Chloride 40 meq/ (Sodium Chloride) 270 mls @ 135 mls/hr IVPB ASDIR PRN PRN Reason: FOR SERUM K+ 2.5 - 3.5 Potassium Chloride 40 meq/ (Device) 100 mls @ 50 mls/hr IVPB ASDIR PRN PRN Reason: FOR SERUM K+ 2.5 - 3.5 Last Admin: 08/18/18 06:27 Dose: 100 mls Magnesium Sulfate 1 gm/ Sodium (Chloride) 102 mls @ 102 mls/hr IV PRN PRN PRN Reason: MAG LEVEL 1.4 - 2.0 Magnesium Sulfate 2 gm/ Device 50 mls @ 50 mls/hr IVPB ASDIR PRN PRN Reason: MAGNESIUM < 1.4 Potassium Phosphate 9 mmol/ (Sodium Chloride) 103 mls @ 25.75 mls/hr IVPB ASDIR PRN PRN Reason: Phosphate 1.0-1.8 Potassium Phosphate 12 mmol/ (Sodium Chloride) 254 mls @ 63.5 mls/hr IV ASDIR PRN PRN Reason: Serum phosphate 0.5-0.9 Potassium Phosphate 15 mmol/ (Sodium Chloride) 255 mls @ 63.75 mls/hr IV ASDIR PRN PRN Reason: Serum Phos < 0.5 Sodium Chloride (Normal Saline 0.9%) 1,000 mls @ 0 mls/hr IV .Q0M [facility] Loratadine (Claritin) 10 mg PER TUBE DAILYPRN PRN PRN Reason: Sinus Symptoms Magnesium Oxide (Magnesium Oxide) 400 mg PO BIDPRN PRN PRN Reason: FOR SERUM MAG 1.4 - 2.0 Magnesium Oxide (Magnesium Oxide) 800 mg PO PRN PRN PRN Reason: FOR SERUM MAG < 1.4 Methylprednisolone Sodium Succinate (Solu-Medrol) 20 mg IVP Q8HR [facility] Metoclopramide HCl (Reglan) 5 mg IVP Q4H PRN PRN Reason: Nausea Mineral Oil/White Petrolatum (Eucerin Cream) 0 gm TOP BIDPRN PRN PRN Reason: Dry Skin Miscellaneous Medication (Pharmacy To Dose) 1 each IVPB PRN PRN PRN Reason: Pharmacy to dose Miscellaneous Medication (Phos-Nak) 1 pkt PO TIDPRN PRN PRN Reason: FOR PHOS LEVEL 1.0 - 1.8 Miscellaneous Medication (Phos-Nak) 2 pkt PO TIDPRN PRN PRN Reason: FOR PHOS LEVEL 0.5 - 1.0 Ccu Electrolyte (Replacement Protocol) 0 each FS PRN PRN PRN Reason: FOR ELECTROLYTE REPLACEMENT Ondansetron HCl (Zofran) 4 mg IVP Q6H PRN PRN Reason: Nausea/Vomiting Potassium Chloride (K-Dur) 40 meq PO ASDIR PRN PRN Reason: FOR SERUM K+ 2.5 - 3.5 Potassium Chloride (Klor-Con) 40 meq PER TUBE ASDIR PRN PRN Reason: FOR SERUM K+ 2.5-3.5 Sodium Chloride ([place] Nasal [place] 0.65%) 0 ml EA NARE QIDPRN PRN PRN Reason: Nasal Congestion
[2018-08-18] MEDS: Atorvastatin Calcium 10 MG TAB PER TUBE SCH (23:13)
[2018-08-19] MEDS: Piperacillin/Tazobactam 3.375 GM in Sodium Chloride 0.9% 100 ML IVPB SCH ×4 (04:16→21:38)
[2018-08-19] MEDS: Sodium Chloride 0.9% 1,000 ML IV SCH ×3 (04:16→09:44)
[2018-08-19 04:49] LABS: Band 17 % (5-11); Hemoglobin 8.5 g/dL (14.0-18.0); Lymphocytes 3 % (21-51); MDiff Complete? YES; Mean Corpuscular HGB CONC 31.5 g/dL (32.0-36.0); Mean Corpuscular Hemoglobin 29.5 pg (27.0-31.0); Mean Corpuscular Volume 93.5 fL (78.0-98.0); Mean Platelet Volume 6.6 fL (7.4-10.4); Monocytes 4 % (0-10); Neutrophil 76 % (42-75); Platelet Count 237 thou/uL (130-400); Platelet Morphology Comment Appears Adequate; RBC Distribution Width 13.7 % (11.5-14.5); RBC Morphology Normal; White Blood Cell (WBC) Count 6.7 thou/uL (4.8-10.8)
[2018-08-19 05:00] LABS: ALT (SGPT) 18 U/L (8-55); AST (SGOT) 36 U/L (5-34); Albumin 2.7 g/dL (3.4-4.8); Alkaline Phosphatase 76 U/L (40-150); Anion Gap 12 mmol/L (10-20); BUN (Urea Nitrogen) 9 mg/dL (8.4-25.7); Bilirubin, Total 0.5 mg/dL (0.2-1.2); Calc. Creatinine Clearance 86 mL/min (70-130); Carbon Dioxide 18 mmol/L (23-31); Chloride 116 mmol/L (98-107); Estimated GFR-MDRD Greater than 90; Globulin 2.5 g/dL (2.4-3.5); Glucose 93 mg/dL (83-110); Potassium 3.3 mmol/L (3.5-5.1); Protein, Total 5.2 g/dL (5.8-8.1); Sodium 143 mmol/L (136-145)
[2018-08-19] MEDS: Vancomycin HCl 1 GM in Premix Bag 1 BAG IVPB SCH (05:26)
[2018-08-19] MEDS: methylPREDNISolone Sod Succ 40 MG VIAL IVP SCH ×3 (05:26→22:36)
--- NOTE | 2018-08-19 09:28 | PRG ---
DATE OF SERVICE: 08/19/2018 SUBJECTIVE: A 78-year-old gentleman, who has failed a swallow study, remains weak. Denies any chest pain, chills, or sweats. Speech to see him again today for another swallow study. Echo done yesterday, shows normal EF. OBJECTIVE: VITAL SIGNS: His blood pressure was 141/71, pulse 106, saturations 95% on 2 L, and respiratory rate 18. CHEST: Bilateral rhonchi. CARDIAC: Normal S1 and S2. No gallops. ABDOMEN: No masses. LABORATORY DATA: White count 6000, hemoglobin and hematocrit , platelet count is normal. His lytes are normal. IMPRESSION: Respiratory failure, bilateral bronchopneumonia, marked deconditioning, dysphagia. Await speech input. If he fails, going to need a PEG for nutritional support. Antibiotics, neb treatments, and steroids. We will follow. One-half hour of critical time. Job ID: [id number]
[2018-08-19] MEDS: Famotidine/PF 20 mg/2ml Vial SLOW IVP SCH ×2 (09:42→21:38)
[2018-08-19] MEDS: Enoxaparin Sodium 40 MG/0.4 ML SYRINGE SC SCH (09:43)
[2018-08-19] MEDS: Aspirin Chewable 81 MG TAB PER TUBE SCH (09:44)
--- NOTE | 2018-08-19 10:32 | PDOC.PN ---
- Subjective Encounter Start Date: 08/19/18 Encounter Start Time: 09:45 Patient seen and examined. No new complaints. No overnight events - Objective Resuscitation Status - Order Detail: 08/15/18 14:03 Resuscitation Status Routine Resuscitation Status: FULL: Full Resuscitation MAR Reviewed: Yes Vital Signs & Weight: Vital Signs (12 hours) Temp Pulse Resp Pulse Ox 08/19/18 08:00 97.8 F 100 08/19/18 07:26 96 08/19/18 07:23 93 19 96 08/19/18 04:00 97.8 F 08/19/18 02:35 100 19 99 08/19/18 00:00 98.4 F 08/18/18 22:41 110 H 19 96 Weight Admit Weight 115 lb 1.28 oz Weight 120 lb 9.486 oz Most Recent Monitor Data Heart Rate from ECG 90 NIBP 164/91 NIBP BP-Mean 115 Respiration from ECG 14 SpO2 100 I&O: 08/18/18 08/19/18 08/20/18 06:59 06:59 07:59 Intake Total 3286 2089 Output Total 663 1150 225 Balance 2623 939 -225 Result Diagrams: 08/19/18 04:15 08/19/18 04:15 EKG Reviewed by me: Yes (nsr) Phys Exam - Physical Examination Constitutional: NAD HEENT: PERRLA, sclera anicteric Neck: no JVD, supple Respiratory: no wheezing, no rales, no rhonchi Cardiovascular: RRR, no significant murmur, no rub Gastrointestinal: soft, non-tender, no distention, positive bowel sounds Musculoskeletal: no edema, pulses present Lymphatic: no nodes Skin: no rash, normal turgor Dx/Plan (1) Acute respiratory failure with hypoxia Code(s): J96.01 - ACUTE RESPIRATORY FAILURE WITH HYPOXIA Status: Acute Comment: extubated 07/20/2018 (2) Bacterial pneumonia Code(s): J15.9 - UNSPECIFIED BACTERIAL PNEUMONIA Status: Acute (3) COPD (chronic obstructive pulmonary disease) Status: Chronic Qualifiers: COPD type: COPD with acute exacerbation Qualified Code(s): J44.1 - Chronic obstructive pulmonary disease with (acute) exacerbation (4) Dyslipidemia Code(s): E78.5 - HYPERLIPIDEMIA, UNSPECIFIED Status: Chronic (5) Moderate protein-calorie malnutrition Code(s): E44.0 - MODERATE PROTEIN-CALORIE MALNUTRITION Status: Chronic (6) Peripheral vascular disease Code(s): I73.9 - PERIPHERAL VASCULAR DISEASE, UNSPECIFIED Status: Chronic Comment: no acute ischemia of remaining leg per Dr. Whatley (7) Tobacco abuse disorder Code(s): Z72.0 - TOBACCO USE Status: Chronic (8) Lactic acidosis Code(s): E87.2 - ACIDOSIS Status: Resolved (9) Septic shock Code(s): A41.9 - SEPSIS, UNSPECIFIED ORGANISM; R65.21 - SEVERE SEPSIS WITH SEPTIC SHOCK Status: Resolved Comment: Hypotension requiring Levophed now resolved, on Vanc and Zosyn since 08/15/2018 - Plan cont current plan of care, continue antibiotics, respiratory therapy * medication reviewed as below * symptomatic treatment * speech therapy following * continue current IV antibiotics. * transfer will defer to pulmonary Review of Systems - Review of Systems Other: unable to review due to her level of cognitive status - Medications/Allergies Allergies/Adverse Reactions: Allergies Allergy/AdvReac Type Severity Reaction Status Date / Time No Known Allergies Allergy Verified 08/15/18 17:15 Medications: Current Medications Acetaminophen (Tylenol) 650 mg PER TUBE Q4H PRN PRN Reason: Headache/Fever/Mild Pain (1-3) Albuterol/Ipratropium (Duoneb) 3 ml NEB [id number] [facility] Last Admin: 08/19/18 07:23 Dose: 3 ml Artificial Tears (Tears Renewed 15ml Bottle) 2 drop EA EYE PRN PRN PRN Reason: Dry Eyes Aspirin (Aspirin Chewable) 81 mg PER TUBE DAILY [facility] Last Admin: 08/19/18 09:44 Dose: Not Given Atorvastatin Calcium (Lipitor) 10 mg PER TUBE HS [facility] Last Admin: 08/18/18 23:13 Dose: Not Given Bisacodyl (Dulcolax) 10 mg AL DAILYPRN PRN PRN Reason: Constipation Enoxaparin Sodium (Lovenox) 40 mg SC 0900 [facility] Last Admin: 08/19/18 09:43 Dose: 40 mg Famotidine (Pepcid) 20 mg SLOW IVP Q12HR [facility] Last Admin: 08/19/18 09:42 Dose: 20 mg Guaifenesin (Robitussin Sf) 200 mg PER TUBE Q4H PRN PRN Reason: Cough Hydralazine HCl (Apresoline) 10 mg SLOW IVP Q4H PRN PRN Reason: SBP > 180 and HR < 70 Piperacillin Sod/Tazobactam (Sod 3.375 gm/ Sodium Chloride) 100 mls @ 200 mls/ hr IVPB 0300,0900,1500,2100 [facility] Last Admin: 08/19/18 09:41 Dose: 100 mls Levofloxacin 500 mg/ Device 100 mls @ 100 mls/hr IVPB Q24HR [facility] Last Admin: 08/18/18 16:23 Dose: 100 mls Vancomycin HCl 1 gm/ Device 200 mls @ 200 mls/hr IVPB 0500,1700 [facility] Last Admin: 08/19/18 05:26 Dose: 200 mls Potassium Chloride 40 meq/ (Sodium Chloride) 270 mls @ 135 mls/hr IVPB ASDIR PRN PRN Reason: FOR SERUM K+ 2.5 - 3.5 Potassium Chloride 40 meq/ (Device) 100 mls @ 50 mls/hr IVPB ASDIR PRN PRN Reason: FOR SERUM K+ 2.5 - 3.5 Last Admin: 08/18/18 06:27 Dose: 100 mls Magnesium Sulfate 1 gm/ Sodium (Chloride) 102 mls @ 102 mls/hr IV PRN PRN PRN Reason: MAG LEVEL 1.4 - 2.0 Magnesium Sulfate 2 gm/ Device 50 mls @ 50 mls/hr IVPB ASDIR PRN PRN Reason: MAGNESIUM < 1.4 Potassium Phosphate 9 mmol/ (Sodium Chloride) 103 mls @ 25.75 mls/hr IVPB ASDIR PRN PRN Reason: Phosphate 1.0-1.8 Potassium Phosphate 12 mmol/ (Sodium Chloride) 254 mls @ 63.5 mls/hr IV ASDIR PRN PRN Reason: Serum phosphate 0.5-0.9 Potassium Phosphate 15 mmol/ (Sodium Chloride) 255 mls @ 63.75 mls/hr IV ASDIR PRN PRN Reason: Serum Phos < 0.5 Sodium Chloride (Normal Saline 0.9%) 1,000 mls @ 50 mls/hr IV .Q20H [facility] Last Admin: 08/19/18 09:44 Dose: Not Given Loratadine (Claritin) 10 mg PER TUBE DAILYPRN PRN PRN Reason: Sinus Symptoms Magnesium Oxide (Magnesium Oxide) 400 mg PO BIDPRN PRN PRN Reason: FOR SERUM MAG 1.4 - 2.0 Magnesium Oxide (Magnesium Oxide) 800 mg PO PRN PRN PRN Reason: FOR SERUM MAG < 1.4 Methylprednisolone Sodium Succinate (Solu-Medrol) 20 mg IVP Q8HR [facility] Last Admin: 08/19/18 05:26 Dose: 20 mg Metoclopramide HCl (Reglan) 5 mg IVP Q4H PRN PRN Reason: Nausea Mineral Oil/White Petrolatum (Eucerin Cream) 0 gm TOP BIDPRN PRN PRN Reason: Dry Skin Miscellaneous Medication (Pharmacy To Dose) 1 each IVPB PRN PRN PRN Reason: Pharmacy to dose Miscellaneous Medication (Phos-Nak) 1 pkt PO TIDPRN PRN PRN Reason: FOR PHOS LEVEL 1.0 - 1.8 Miscellaneous Medication (Phos-Nak) 2 pkt PO TIDPRN PRN PRN Reason: FOR PHOS LEVEL 0.5 - 1.0 Ccu Electrolyte (Replacement Protocol) 0 each FS PRN PRN PRN Reason: FOR ELECTROLYTE REPLACEMENT Ondansetron HCl (Zofran) 4 mg IVP Q6H PRN PRN Reason: Nausea/Vomiting Potassium Chloride (K-Dur) 40 meq PO ASDIR PRN PRN Reason: FOR SERUM K+ 2.5 - 3.5 Potassium Chloride (Klor-Con) 40 meq PER TUBE ASDIR PRN PRN Reason: FOR SERUM K+ 2.5-3.5 Sodium Chloride ([place] Nasal [place] 0.65%) 0 ml EA NARE QIDPRN PRN PRN Reason: Nasal Congestion
[2018-08-19] MEDS: Vancomycin HCl 750 MG in Sodium Chloride 0.9% 250 ML 250 ML IVPB SCH (19:43)
[2018-08-19] MEDS: Atorvastatin Calcium 10 MG TAB PER TUBE SCH (21:39)
[2018-08-20] MEDS: Piperacillin/Tazobactam 3.375 GM in Sodium Chloride 0.9% 100 ML IVPB SCH ×4 (03:04→21:17)
[2018-08-20] MEDS: Sodium Chloride 0.9% 1,000 ML IV SCH (03:56)
[2018-08-20] MEDS: methylPREDNISolone Sod Succ 40 MG VIAL IVP SCH ×3 (06:29→21:16)
[2018-08-20 06:44] LABS: ALT (SGPT) 16 U/L (8-55); AST (SGOT) 38 U/L (5-34); Albumin 2.7 g/dL (3.4-4.8); Alkaline Phosphatase 69 U/L (40-150); Anion Gap 12 mmol/L (10-20); BUN (Urea Nitrogen) 9 mg/dL (8.4-25.7); Bilirubin, Total 0.8 mg/dL (0.2-1.2); Calc. Creatinine Clearance 78 mL/min (70-130); Carbon Dioxide 21 mmol/L (23-31); Chloride 116 mmol/L (98-107); Estimated GFR-MDRD Greater than 90; Globulin 2.4 g/dL (2.4-3.5); Glucose 93 mg/dL (83-110); Potassium 3.2 mmol/L (3.5-5.1); Protein, Total 5.1 g/dL (5.8-8.1); Sodium 146 mmol/L (136-145)
[2018-08-20 06:47] LABS: Band 2 % (5-11); Hemoglobin 8.9 g/dL (14.0-18.0); Lymphocytes 7 % (21-51); MDiff Complete? YES; Mean Corpuscular HGB CONC 31.4 g/dL (32.0-36.0); Mean Corpuscular Hemoglobin 28.9 pg (27.0-31.0); Mean Corpuscular Volume 91.9 fL (78.0-98.0); Monocytes 2 % (0-10); Neutrophil 89 % (42-75); Platelet Count 269 thou/uL (130-400); Platelet Morphology Comment Appears Adequate; Red Blood Cell (RBC) Count 3.07 mill/uL (4.70-6.10); White Blood Cell (WBC) Count 6.4 thou/uL (4.8-10.8)
[2018-08-20] MEDS: Vancomycin HCl 750 MG in Sodium Chloride 0.9% 250 ML 250 ML IVPB SCH ×2 (08:26→20:49)
[2018-08-20] MEDS: Aspirin Chewable 81 MG TAB PER TUBE SCH (08:27)
[2018-08-20] MEDS: Famotidine/PF 20 mg/2ml Vial SLOW IVP SCH ×2 (08:27→21:17)
[2018-08-20] MEDS: Enoxaparin Sodium 40 MG/0.4 ML SYRINGE SC SCH (08:27)
[2018-08-20] MEDS: D5 1/2 NS w/20 mEq KCL 1,000 ML IV SCH (08:45)
--- NOTE | 2018-08-20 10:08 | PRG ---
DATE OF SERVICE: SUBJECTIVE: This morning, awake, alert, and responsive in the ICU. OBJECTIVE: VITAL SIGNS: Pulse is 94, blood pressure 166/80, sats 100%, respiratory rate 18. GENERAL: Cachectic gentleman. Denies any pain or discomfort. CHEST: Decreased breath sounds. No wheezing. CARDIAC: Normal S1, S2. No gallops. ABDOMEN: NO masses. LABORATORY DATA: White count 6000, H and H are 8 and 28. Lytes are normal. IMPRESSION: 1. Severe deconditioning, cachexia. 2. Respiratory failure, sepsis syndrome, chronic obstructive pulmonary disease. PLAN: Continue aggressive PT, supportive care. Speech to see him today. Antibiotics. We will follow. Job ID: [id number]
--- NOTE | 2018-08-20 12:47 | PDOC.PN ---
- Subjective Encounter Start Date: 08/20/18 Encounter Start Time: 09:45 Patient seen and examined. No new complaints. No overnight events - Objective Resuscitation Status - Order Detail: 08/15/18 14:03 Resuscitation Status Routine Resuscitation Status: FULL: Full Resuscitation MAR Reviewed: Yes Vital Signs & Weight: Vital Signs (12 hours) Temp Pulse Resp Pulse Ox 08/20/18 12:24 91 17 08/20/18 08:00 98 F 08/20/18 07:30 97 08/20/18 07:28 92 20 97 08/20/18 03:29 78 13 100 08/20/18 00:00 97.8 F Weight Admit Weight 115 lb 1.28 oz Weight 123 lb 0.287 oz Most Recent Monitor Data Heart Rate from ECG 77 NIBP 135/95 NIBP BP-Mean 108 Respiration from ECG 17 SpO2 95 I&O: 08/19/18 08/20/18 08/21/18 05:59 06:59 06:59 Intake Total 463 Output Total 585 Balance -122 Result Diagrams: 08/20/18 05:38 08/20/18 05:38 EKG Reviewed by me: Yes (nsr) Phys Exam - Physical Examination Constitutional: NAD HEENT: PERRLA, moist MMs Neck: no JVD, supple Respiratory: no wheezing, no rales, no rhonchi Cardiovascular: RRR, no significant murmur, no rub Gastrointestinal: soft, non-tender, no distention, positive bowel sounds Musculoskeletal: no edema, pulses present Neurological: non-focal, normal sensation Dx/Plan (1) Acute respiratory failure with hypoxia Code(s): J96.01 - ACUTE RESPIRATORY FAILURE WITH HYPOXIA Status: Acute Comment: extubated 07/20/2018 (2) Bacterial pneumonia Code(s): J15.9 - UNSPECIFIED BACTERIAL PNEUMONIA Status: Acute (3) COPD (chronic obstructive pulmonary disease) Status: Chronic Qualifiers: COPD type: COPD with acute exacerbation Qualified Code(s): J44.1 - Chronic obstructive pulmonary disease with (acute) exacerbation (4) Dyslipidemia Code(s): E78.5 - HYPERLIPIDEMIA, UNSPECIFIED Status: Chronic (5) Moderate protein-calorie malnutrition Code(s): E44.0 - MODERATE PROTEIN-CALORIE MALNUTRITION Status: Chronic (6) Peripheral vascular disease Code(s): I73.9 - PERIPHERAL VASCULAR DISEASE, UNSPECIFIED Status: Chronic Comment: no acute ischemia of remaining leg per Dr. Whatley (7) Tobacco abuse disorder Code(s): Z72.0 - TOBACCO USE Status: Chronic (8) Lactic acidosis Code(s): E87.2 - ACIDOSIS Status: Resolved (9) Septic shock Code(s): A41.9 - SEPSIS, UNSPECIFIED ORGANISM; R65.21 - SEVERE SEPSIS WITH SEPTIC SHOCK Status: Resolved Comment: Hypotension requiring Levophed now resolved, on Vanc and Zosyn since 08/15/2018 - Plan cont current plan of care, continue antibiotics, speech therapy, respiratory therapy, DVT proph w/SCDs * medication reviewed as below * symptomatic treatment * continue iv antibiotics * diet when cleared by speech. Review of Systems - Review of Systems Respiratory: negative: Cough, Dry, Shortness of Breath, Hemoptysis, SOB with Excertion, Pleuritic Pain, Sputum, Wheezing Cardiovascular: negative: chest pain, palpitations, orthopnea, paroxysmal nocturnal dyspnea, edema, light headedness, other Gastrointestinal: negative: Nausea, Vomiting, Abdominal Pain, Diarrhea, Constipation, Melena, Hematochezia, Other Genitourinary: negative: Dysuria, Frequency, Incontinence, Hematuria, Retention , Other Other: not reliable due to his level of cognitive status - Medications/Allergies Allergies/Adverse Reactions: Allergies Allergy/AdvReac Type Severity Reaction Status Date / Time No Known Allergies Allergy Verified 08/15/18 17:15 Medications: Current Medications Acetaminophen (Tylenol) 650 mg PER TUBE Q4H PRN PRN Reason: Headache/Fever/Mild Pain (1-3) Albuterol/Ipratropium (Duoneb) 3 ml NEB [id number] [facility] Last Admin: 08/20/18 12:24 Dose: 3 ml Artificial Tears (Tears Renewed 15ml Bottle) 2 drop EA EYE PRN PRN PRN Reason: Dry Eyes Aspirin (Aspirin Chewable) 81 mg PER TUBE DAILY [facility] Last Admin: 08/20/18 08:27 Dose: Not Given Atorvastatin Calcium (Lipitor) 10 mg PER TUBE HS [facility] Last Admin: 08/19/18 21:39 Dose: Not Given Bisacodyl (Dulcolax) 10 mg [place] DAILYPRN PRN PRN Reason: Constipation Enoxaparin Sodium (Lovenox) 40 mg SC 0900 [facility] Last Admin: 08/20/18 08:27 Dose: 40 mg Famotidine (Pepcid) 20 mg SLOW IVP Q12HR [facility] Last Admin: 08/20/18 08:27 Dose: 20 mg Guaifenesin (Robitussin Sf) 200 mg PER TUBE Q4H PRN PRN Reason: Cough Hydralazine HCl (Apresoline) 10 mg SLOW IVP Q4H PRN PRN Reason: SBP > 180 and HR < 70 Piperacillin Sod/Tazobactam (Sod 3.375 gm/ Sodium Chloride) 100 mls @ 200 mls/ hr IVPB 0300,0900,1500,2100 [facility] Last Admin: 08/20/18 08:51 Dose: 100 mls Levofloxacin 500 mg/ Device 100 mls @ 100 mls/hr IVPB Q24HR [facility] Last Admin: 08/19/18 16:06 Dose: 100 mls Potassium Chloride 40 meq/ (Sodium Chloride) 270 mls @ 135 mls/hr IVPB ASDIR PRN PRN Reason: FOR SERUM K+ 2.5 - 3.5 Potassium Chloride 40 meq/ (Device) 100 mls @ 50 mls/hr IVPB ASDIR PRN PRN Reason: FOR SERUM K+ 2.5 - 3.5 Last Admin: 08/18/18 06:27 Dose: 100 mls Magnesium Sulfate 1 gm/ Sodium (Chloride) 102 mls @ 102 mls/hr IV PRN PRN PRN Reason: MAG LEVEL 1.4 - 2.0 Magnesium Sulfate 2 gm/ Device 50 mls @ 50 mls/hr IVPB ASDIR PRN PRN Reason: MAGNESIUM < 1.4 Potassium Phosphate 9 mmol/ (Sodium Chloride) 103 mls @ 25.75 mls/hr IVPB ASDIR PRN PRN Reason: Phosphate 1.0-1.8 Potassium Phosphate 12 mmol/ (Sodium Chloride) 254 mls @ 63.5 mls/hr IV ASDIR PRN PRN Reason: Serum phosphate 0.5-0.9 Potassium Phosphate 15 mmol/ (Sodium Chloride) 255 mls @ 63.75 mls/hr IV ASDIR PRN PRN Reason: Serum Phos < 0.5 Vancomycin HCl 750 mg/ Sodium (Chloride) 250 mls @ 250 mls/hr IVPB 0800,2000 [facility] Last Admin: 08/20/18 08:26 Dose: 250 mls Potassium Chloride/Dextrose/Sod Cl (D5 1/2 Ns W/20 Meq Kcl) 1,000 mls @ 70 mls/ hr IV .[id number] [facility] Last Admin: 08/20/18 08:45 Dose: 1,000 mls Loratadine (Claritin) 10 mg PER TUBE DAILYPRN PRN PRN Reason: Sinus Symptoms Magnesium Oxide (Magnesium Oxide) 400 mg PO BIDPRN PRN PRN Reason: FOR SERUM MAG 1.4 - 2.0 Magnesium Oxide (Magnesium Oxide) 800 mg PO PRN PRN PRN Reason: FOR SERUM MAG < 1.4 Methylprednisolone Sodium Succinate (Solu-Medrol) 20 mg IVP Q8HR [facility] Last Admin: 08/20/18 06:29 Dose: 20 mg Metoclopramide HCl (Reglan) 5 mg IVP Q4H PRN PRN Reason: Nausea Mineral Oil/White Petrolatum (Eucerin Cream) 0 gm TOP BIDPRN PRN PRN Reason: Dry Skin Miscellaneous Medication (Pharmacy To Dose) 1 each IVPB PRN PRN PRN Reason: Pharmacy to dose Miscellaneous Medication (Phos-Nak) 1 pkt PO TIDPRN PRN PRN Reason: FOR PHOS LEVEL 1.0 - 1.8 Miscellaneous Medication (Phos-Nak) 2 pkt PO TIDPRN PRN PRN Reason: FOR PHOS LEVEL 0.5 - 1.0 Ccu Electrolyte (Replacement Protocol) 0 each FS PRN PRN PRN Reason: FOR ELECTROLYTE REPLACEMENT Ondansetron HCl (Zofran) 4 mg IVP Q6H PRN PRN Reason: Nausea/Vomiting Potassium Chloride (K-Dur) 40 meq PO ASDIR PRN PRN Reason: FOR SERUM K+ 2.5 - 3.5 Potassium Chloride (Klor-Con) 40 meq PER TUBE ASDIR PRN PRN Reason: FOR SERUM K+ 2.5-3.5 Sodium Chloride ([place] Nasal [place] 0.65%) 0 ml EA NARE QIDPRN PRN PRN Reason: Nasal Congestion
[2018-08-20] MEDS: Nicotine 14 MG PATCH TD SCH (14:07)
[2018-08-20] MEDS: Atorvastatin Calcium 10 MG TAB PER TUBE SCH (21:21)
[2018-08-20] MEDS ORDERED: Pancrelipase DR 12000 1 CAP PO PRN (21:29)
[2018-08-20] MEDS ORDERED: Sodium Bicarbonate Tab 325 MG TAB PER TUBE PRN (21:32)
[2018-08-21] MEDS: D5 1/2 NS w/20 mEq KCL 1,000 ML IV SCH ×2 (00:02→07:15)
[2018-08-21] MEDS: Piperacillin/Tazobactam 3.375 GM in Sodium Chloride 0.9% 100 ML IVPB SCH ×4 (03:13→20:19)
[2018-08-21] MEDS: methylPREDNISolone Sod Succ 40 MG VIAL IVP SCH ×3 (05:35→22:30)
[2018-08-21 08:12] LABS: Hemoglobin 9.2 g/dL (14.0-18.0); Mean Corpuscular HGB CONC 32.3 g/dL (32.0-36.0); Mean Corpuscular Hemoglobin 29.7 pg (27.0-31.0); Mean Corpuscular Volume 91.8 fL (78.0-98.0); Mean Platelet Volume 7.2 fL (7.4-10.4); Platelet Count 284 thou/uL (130-400); RBC Distribution Width 14.2 % (11.5-14.5); Red Blood Cell (RBC) Count 3.08 mill/uL (4.70-6.10); White Blood Cell (WBC) Count 8.4 thou/uL (4.8-10.8)
[2018-08-21] MEDS: Vancomycin HCl 750 MG in Sodium Chloride 0.9% 250 ML 250 ML IVPB SCH ×2 (08:13→20:15)
[2018-08-21] MEDS: Aspirin Chewable 81 MG TAB PER TUBE SCH (08:14)
[2018-08-21 08:15] LABS: Vancomycin, Trough 20.9 ug/mL
[2018-08-21] MEDS: Famotidine/PF 20 mg/2ml Vial SLOW IVP SCH ×2 (08:15→20:19)
[2018-08-21] MEDS: Enoxaparin Sodium 40 MG/0.4 ML SYRINGE SC SCH (08:16)
[2018-08-21 08:17] LABS: Anion Gap 11 mmol/L (10-20); BUN (Urea Nitrogen) 7 mg/dL (8.4-25.7); Calc. Creatinine Clearance 78 mL/min (70-130); Calcium 8.6 mg/dL (7.8-10.44); Carbon Dioxide 22 mmol/L (23-31); Chloride 112 mmol/L (98-107); Estimated GFR-MDRD Greater than 90; Glucose 111 mg/dL (83-110); Magnesium 1.7 mg/dL (1.6-2.6); Potassium 3.7 mmol/L (3.5-5.1); Sodium 141 mmol/L (136-145)
[2018-08-21 08:35] LABS: Band 2 % (5-11); Lymphocytes 14 % (21-51); MDiff Complete? YES; Monocytes 2 % (0-10); Neutrophil 82 % (42-75); Platelet Morphology Comment Appears Adequate; Polychromasia SLIGHT = 2-3 cells (100X) (0-2/hpf)
--- NOTE | 2018-08-21 09:43 | RAD ---
ABDOMEN 1 VIEW: HISTORY: NG tube placement. FINDINGS: An NG tube is noted extending into the stomach, slightly coiled within the stomach. Fairly extensive bilateral interstitial and reticulonodular parenchymal changes are noted in both lung zones and ther e is blunting of the right costophrenic angle stable from 08/18/2018 chest x-ray. IMPRESSION: Nasogastric tube in satisfactory location within the stomach. Pleural and parenchymal opacity change s in the visualized lung bases. POS: TPC
--- NOTE | 2018-08-21 11:34 | PDOC.PN ---
- Subjective Encounter Start Date: 08/21/18 Encounter Start Time: 10:00 pt continue to fail swallow evaluation, he is NPO - Objective Resuscitation Status - Order Detail: 08/15/18 14:03 Resuscitation Status Routine Resuscitation Status: FULL: Full Resuscitation MAR Reviewed: Yes Vital Signs & Weight: Vital Signs (12 hours) Temp Pulse Resp Pulse Ox 08/21/18 10:24 77 18 100 08/21/18 07:17 93 17 100 08/21/18 03:00 98.0 F 08/21/18 00:00 97.7 F Weight Admit Weight 115 lb 1.28 oz Weight 120 lb 9.486 oz Most Recent Monitor Data Heart Rate from ECG 93 NIBP 159/94 NIBP BP-Mean 115 Respiration from ECG 17 SpO2 100 I&O: 08/20/18 08/21/18 08/22/18 06:59 06:59 06:59 Intake Total 2954 Output Total 2430 Balance 524 Result Diagrams: 08/21/18 07:30 08/21/18 07:30 EKG Reviewed by me: Yes (nsr) Phys Exam - Physical Examination Constitutional: NAD HEENT: PERRLA dry MM Neck: no JVD, supple Respiratory: no wheezing, no rales, no rhonchi Cardiovascular: RRR, no significant murmur, no rub Gastrointestinal: soft, non-tender, no distention Musculoskeletal: no edema Lymphatic: no nodes Psychiatric: normal affect Skin: no rash, normal turgor Dx/Plan (1) Acute respiratory failure with hypoxia Code(s): J96.01 - ACUTE RESPIRATORY FAILURE WITH HYPOXIA Status: Acute Comment: extubated 07/20/2018 (2) Bacterial pneumonia Code(s): J15.9 - UNSPECIFIED BACTERIAL PNEUMONIA Status: Acute (3) COPD (chronic obstructive pulmonary disease) Status: Chronic Qualifiers: COPD type: COPD with acute exacerbation Qualified Code(s): J44.1 - Chronic obstructive pulmonary disease with (acute) exacerbation (4) Dyslipidemia Code(s): E78.5 - HYPERLIPIDEMIA, UNSPECIFIED Status: Chronic (5) Moderate protein-calorie malnutrition Code(s): E44.0 - MODERATE PROTEIN-CALORIE MALNUTRITION Status: Chronic (6) Peripheral vascular disease Code(s): I73.9 - PERIPHERAL VASCULAR DISEASE, UNSPECIFIED Status: Chronic Comment: no acute ischemia of remaining leg per Dr. Whatley (7) Tobacco abuse disorder Code(s): Z72.0 - TOBACCO USE Status: Chronic (8) Lactic acidosis Code(s): E87.2 - ACIDOSIS Status: Resolved (9) Septic shock Code(s): A41.9 - SEPSIS, UNSPECIFIED ORGANISM; R65.21 - SEVERE SEPSIS WITH SEPTIC SHOCK Status: Resolved Comment: Hypotension requiring Levophed now resolved, on Vanc and Zosyn since 08/15/2018 (10) Oropharyngeal dysphagia Code(s): R13.12 - DYSPHAGIA, OROPHARYNGEAL PHASE Status: Acute - Plan cont current plan of care, continue antibiotics, PT/OT, social media director, speech therapy, respiratory therapy * he will need peg tube placement, will address with family when MPOA available * medication reviewed as below * symptomatic treatment * continue current iv antibiotics * on discharge he will need placement * supportive care. * will transfer to medical floor if pulmonary ok Review of Systems - Review of Systems Other: not reliable with pt due to his level of cognitive status - Medications/Allergies Allergies/Adverse Reactions: Allergies Allergy/AdvReac Type Severity Reaction Status Date / Time No Known Allergies Allergy Verified 08/15/18 17:15 Medications: Current Medications Acetaminophen (Tylenol) 650 mg PER TUBE Q4H PRN PRN Reason: Headache/Fever/Mild Pain (1-3) Albuterol/Ipratropium (Duoneb) 3 ml NEB [id number] [facility] Last Admin: 08/21/18 10:24 Dose: 3 ml Lipase/Protease/Amylase ([place] Bae 24200) 1 cap PO PRN PRN PRN Reason: Pharmacy to dose Artificial Tears (Tears Renewed 15ml Bottle) 2 drop EA EYE PRN PRN PRN Reason: Dry Eyes Aspirin (Aspirin Chewable) 81 mg PER TUBE DAILY [facility] Last Admin: 08/21/18 08:14 Dose: 81 mg Atorvastatin Calcium (Lipitor) 10 mg PER TUBE HS [facility] Last Admin: 08/20/18 21:21 Dose: 10 mg Bisacodyl (Dulcolax) 10 mg [place] DAILYPRN PRN PRN Reason: Constipation Enoxaparin Sodium (Lovenox) 40 mg SC 0900 [facility] Last Admin: 08/21/18 08:16 Dose: 40 mg Famotidine (Pepcid) 20 mg SLOW IVP Q12HR [facility] Last Admin: 08/21/18 08:15 Dose: 20 mg Guaifenesin (Robitussin Sf) 200 mg PER TUBE Q4H PRN PRN Reason: Cough Hydralazine HCl (Apresoline) 10 mg SLOW IVP Q4H PRN PRN Reason: SBP > 180 and HR < 70 Piperacillin Sod/Tazobactam (Sod 3.375 gm/ Sodium Chloride) 100 mls @ 200 mls/ hr IVPB 0300,0900,1500,2100 [facility] Last Admin: 08/21/18 08:14 Dose: 100 mls Levofloxacin 500 mg/ Device 100 mls @ 100 mls/hr IVPB Q24HR [facility] Last Admin: 08/20/18 17:07 Dose: 100 mls Potassium Chloride 40 meq/ (Sodium Chloride) 270 mls @ 135 mls/hr IVPB ASDIR PRN PRN Reason: FOR SERUM K+ 2.5 - 3.5 Last Admin: 08/20/18 14:07 Dose: 270 mls Potassium Chloride 40 meq/ (Device) 100 mls @ 50 mls/hr IVPB ASDIR PRN PRN Reason: FOR SERUM K+ 2.5 - 3.5 Last Admin: 08/18/18 06:27 Dose: 100 mls Magnesium Sulfate 1 gm/ Sodium (Chloride) 102 mls @ 102 mls/hr IV PRN PRN PRN Reason: MAG LEVEL 1.4 - 2.0 Magnesium Sulfate 2 gm/ Device 50 mls @ 50 mls/hr IVPB ASDIR PRN PRN Reason: MAGNESIUM < 1.4 Potassium Phosphate 9 mmol/ (Sodium Chloride) 103 mls @ 25.75 mls/hr IVPB ASDIR PRN PRN Reason: Phosphate 1.0-1.8 Potassium Phosphate 12 mmol/ (Sodium Chloride) 254 mls @ 63.5 mls/hr IV ASDIR PRN PRN Reason: Serum phosphate 0.5-0.9 Potassium Phosphate 15 mmol/ (Sodium Chloride) 255 mls @ 63.75 mls/hr IV ASDIR PRN PRN Reason: Serum Phos < 0.5 Vancomycin HCl 750 mg/ Sodium (Chloride) 250 mls @ 250 mls/hr IVPB 0800,2000 [facility] Last Admin: 08/21/18 08:13 Dose: 250 mls Potassium Chloride/Dextrose/Sod Cl (D5 1/2 Ns W/20 Meq Kcl) 1,000 mls @ 70 mls/ hr IV .[id number] [facility] Last Admin: 08/21/18 07:15 Dose: 1,000 mls Loratadine (Claritin) 10 mg PER TUBE DAILYPRN PRN PRN Reason: Sinus Symptoms Magnesium Oxide (Magnesium Oxide) 400 mg PO BIDPRN PRN PRN Reason: FOR SERUM MAG 1.4 - 2.0 Magnesium Oxide (Magnesium Oxide) 800 mg PO PRN PRN PRN Reason: FOR SERUM MAG < 1.4 Methylprednisolone Sodium Succinate (Solu-Medrol) 20 mg IVP Q8HR [facility] Last Admin: 08/21/18 05:35 Dose: 20 mg Metoclopramide HCl (Reglan) 5 mg IVP Q4H PRN PRN Reason: Nausea Mineral Oil/White Petrolatum (Eucerin Cream) 0 gm TOP BIDPRN PRN PRN Reason: Dry Skin Miscellaneous Medication (Pharmacy To Dose) 1 each IVPB PRN PRN PRN Reason: Pharmacy to dose Miscellaneous Medication (Phos-Nak) 1 pkt PO TIDPRN PRN PRN Reason: FOR PHOS LEVEL 1.0 - 1.8 Miscellaneous Medication (Phos-Nak) 2 pkt PO TIDPRN PRN PRN Reason: FOR PHOS LEVEL 0.5 - 1.0 Nicotine (Nicoderm Patch) 14 mg TD Q24HR [facility] Last Admin: 08/20/18 14:07 Dose: 14 mg Ccu Electrolyte (Replacement Protocol) 0 each FS PRN PRN PRN Reason: FOR ELECTROLYTE REPLACEMENT Ondansetron HCl (Zofran) 4 mg IVP Q6H PRN PRN Reason: Nausea/Vomiting Potassium Chloride (K-Dur) 40 meq PO ASDIR PRN PRN Reason: FOR SERUM K+ 2.5 - 3.5 Potassium Chloride (Klor-Con) 40 meq PER TUBE ASDIR PRN PRN Reason: FOR SERUM K+ 2.5-3.5 Sodium Bicarbonate (Bicarbonate, Sodium) 650 mg PER TUBE PRN PRN PRN Reason: Pharmacy to dose Sodium Chloride ([place] Nasal [place] 0.65%) 0 ml EA NARE QIDPRN PRN PRN Reason: Nasal Congestion
[2018-08-21 12:36] VITALS: BMI 19.3
[2018-08-21] MEDS: Nicotine 14 MG PATCH TD SCH (14:31)
--- NOTE | 2018-08-21 16:27 | PRG ---
DATE OF SERVICE: 08/21/2018 SUBJECTIVE: Hiro Wright continues to get confused at night. OBJECTIVE: VITAL SIGNS: His heart rate 70s, respiratory rate 17, blood pressure 123/60. LUNGS: Remarkable for rhonchi bilaterally. I have suctioned a large amount of oral secretions out of the back of his throat while I was in the room talking to his sister. HEART: Regular rhythm. ABDOMEN: Soft and nontender. EXTREMITIES: Without cyanosis on the left. LABORATORY DATA: White count 8.4, hemoglobin 9.2, platelets 284. Sodium 141, potassium 3.7, chloride 112, bicarb 22, BUN 7, and creatinine 0.62. IMPRESSION: 1. Respiratory failure. 2. Extreme weakness, deconditioning with inability to handle his oral secretions. Another gastric tube placed today. It was noted to be in proper position on the film. His prognosis is quite poor for any type of functional recovery. I have encouraged the family to discuss this again, discuss his code status and discuss taking him home with hospice. He will be a full-time job, I am not sure they can do that adequately, but they have a very large family, so maybe they can. He probably be transferred out of the Critical Care Unit to medical bed in the morning. Job ID: [id number]
[2018-08-21] MEDS: Atorvastatin Calcium 10 MG TAB PER TUBE SCH (20:19)
[2018-08-22] MEDS: Piperacillin/Tazobactam 3.375 GM in Sodium Chloride 0.9% 100 ML IVPB SCH ×3 (03:29→16:10)
[2018-08-22] MEDS: D5 1/2 NS w/20 mEq KCL 1,000 ML IV SCH ×3 (03:33→21:55)
[2018-08-22] MEDS: methylPREDNISolone Sod Succ/PF 125 MG/2 ML VIAL IVP SCH ×2 (05:35→14:19)
[2018-08-22] MEDS: Vancomycin HCl 750 MG in Sodium Chloride 0.9% 250 ML 250 ML IVPB SCH (08:16)
[2018-08-22] MEDS: Enoxaparin Sodium 40 MG/0.4 ML SYRINGE SC SCH (09:44)
[2018-08-22] MEDS: Famotidine/PF 20 mg/2ml Vial SLOW IVP SCH ×2 (09:44→21:54)
--- NOTE | 2018-08-22 10:29 | PDOC.PN ---
- Subjective Encounter Start Date: 08/22/18 Encounter Start Time: 08:00 Patient seen and examined. No new complaints. No overnight events - Objective Resuscitation Status - Order Detail: 08/15/18 14:03 Resuscitation Status Routine Resuscitation Status: FULL: Full Resuscitation MAR Reviewed: Yes Vital Signs & Weight: Vital Signs (12 hours) Temp Pulse Resp Pulse Ox 08/22/18 07:22 97 08/22/18 07:00 97.8 F 08/22/18 06:30 100 08/22/18 06:27 78 11 L 100 08/22/18 04:00 98.0 F 08/22/18 02:46 90 19 94 L 08/22/18 00:00 97.6 F 08/21/18 22:30 88 16 99 Weight Admit Weight 115 lb 1.28 oz Weight 120 lb 3 oz Most Recent Monitor Data Heart Rate from ECG 115 NIBP 156/88 NIBP BP-Mean 110 Respiration from ECG 16 SpO2 92 I&O: 08/21/18 08/22/18 08/23/18 06:59 06:59 06:59 Intake Total 2954 2829 350 Output Total 2430 2860 690 Balance 524 -31 -340 Result Diagrams: 08/21/18 07:30 08/21/18 07:30 EKG Reviewed by me: Yes Phys Exam - Physical Examination Constitutional: NAD HEENT: PERRLA, sclera anicteric Neck: no JVD, supple Respiratory: no wheezing, no rales, no rhonchi Cardiovascular: RRR, no significant murmur, no rub Gastrointestinal: soft, non-tender, no distention Musculoskeletal: no edema, pulses present right AKA Lymphatic: no nodes Psychiatric: normal affect Skin: no rash, normal turgor Dx/Plan (1) Acute respiratory failure with hypoxia Code(s): J96.01 - ACUTE RESPIRATORY FAILURE WITH HYPOXIA Status: Acute Comment: extubated 07/20/2018 (2) Bacterial pneumonia Code(s): J15.9 - UNSPECIFIED BACTERIAL PNEUMONIA Status: Acute (3) COPD (chronic obstructive pulmonary disease) Status: Chronic Qualifiers: COPD type: COPD with acute exacerbation Qualified Code(s): J44.1 - Chronic obstructive pulmonary disease with (acute) exacerbation (4) Dyslipidemia Code(s): E78.5 - HYPERLIPIDEMIA, UNSPECIFIED Status: Chronic (5) Moderate protein-calorie malnutrition Code(s): E44.0 - MODERATE PROTEIN-CALORIE MALNUTRITION Status: Chronic (6) Peripheral vascular disease Code(s): I73.9 - PERIPHERAL VASCULAR DISEASE, UNSPECIFIED Status: Chronic Comment: no acute ischemia of remaining leg per Dr. Whatley (7) Tobacco abuse disorder Code(s): Z72.0 - TOBACCO USE Status: Chronic (8) Lactic acidosis Code(s): E87.2 - ACIDOSIS Status: Resolved (9) Septic shock Code(s): A41.9 - SEPSIS, UNSPECIFIED ORGANISM; R65.21 - SEVERE SEPSIS WITH SEPTIC SHOCK Status: Resolved Comment: Hypotension requiring Levophed now resolved, on Vanc and Zosyn since 08/15/2018 (10) Oropharyngeal dysphagia Code(s): R13.12 - DYSPHAGIA, OROPHARYNGEAL PHASE Status: Acute - Plan cont current plan of care, continue antibiotics, social media assistant, respiratory therapy * transfer to medical * will need peg if family to decide to do so * no family around to discuss, goal of care * palliative care on case * currently on vancomycin and zosyn * continue IVF * medication reviewed as below * symptomatic treatment. Review of Systems - Review of Systems Other: not reliable with pt due to his level of cognitive status - Medications/Allergies Allergies/Adverse Reactions: Allergies Allergy/AdvReac Type Severity Reaction Status Date / Time No Known Allergies Allergy Verified 08/15/18 17:15 Medications: Current Medications Acetaminophen (Tylenol) 650 mg PER TUBE Q4H PRN PRN Reason: Headache/Fever/Mild Pain (1-3) Albuterol/Ipratropium (Duoneb) 3 ml NEB [id number] [facility] Last Admin: 08/22/18 06:27 Dose: 3 ml Lipase/Protease/Amylase ([place] Bae 90534) 1 cap PO PRN PRN PRN Reason: Pharmacy to dose Artificial Tears (Tears Renewed 15ml Bottle) 2 drop EA EYE PRN PRN PRN Reason: Dry Eyes Aspirin (Aspirin Chewable) 81 mg PER TUBE DAILY [facility] Last Admin: 08/21/18 08:14 Dose: 81 mg Atorvastatin Calcium (Lipitor) 10 mg PER TUBE HS [facility] Last Admin: 08/21/18 20:19 Dose: 10 mg Bisacodyl (Dulcolax) 10 mg [place] DAILYPRN PRN PRN Reason: Constipation Enoxaparin Sodium (Lovenox) 40 mg SC 0900 [facility] Last Admin: 08/22/18 09:44 Dose: 40 mg Famotidine (Pepcid) 20 mg SLOW IVP Q12HR [facility] Last Admin: 08/22/18 09:44 Dose: 20 mg Guaifenesin (Robitussin Sf) 200 mg PER TUBE Q4H PRN PRN Reason: Cough Hydralazine HCl (Apresoline) 10 mg SLOW IVP Q4H PRN PRN Reason: SBP > 180 and HR < 70 Piperacillin Sod/Tazobactam (Sod 3.375 gm/ Sodium Chloride) 100 mls @ 200 mls/ hr IVPB 0300,0900,1500,2100 [facility] Last Admin: 08/22/18 09:44 Dose: 100 mls Levofloxacin 500 mg/ Device 100 mls @ 100 mls/hr IVPB Q24HR [facility] Last Admin: 08/21/18 16:32 Dose: 100 mls Potassium Chloride 40 meq/ (Sodium Chloride) 270 mls @ 135 mls/hr IVPB ASDIR PRN PRN Reason: FOR SERUM K+ 2.5 - 3.5 Last Admin: 08/20/18 14:07 Dose: 270 mls Potassium Chloride 40 meq/ (Device) 100 mls @ 50 mls/hr IVPB ASDIR PRN PRN Reason: FOR SERUM K+ 2.5 - 3.5 Last Admin: 08/18/18 06:27 Dose: 100 mls Magnesium Sulfate 1 gm/ Sodium (Chloride) 102 mls @ 102 mls/hr IV PRN PRN PRN Reason: MAG LEVEL 1.4 - 2.0 Magnesium Sulfate 2 gm/ Device 50 mls @ 50 mls/hr IVPB ASDIR PRN PRN Reason: MAGNESIUM < 1.4 Potassium Phosphate 9 mmol/ (Sodium Chloride) 103 mls @ 25.75 mls/hr IVPB ASDIR PRN PRN Reason: Phosphate 1.0-1.8 Potassium Phosphate 12 mmol/ (Sodium Chloride) 254 mls @ 63.5 mls/hr IV ASDIR PRN PRN Reason: Serum phosphate 0.5-0.9 Potassium Phosphate 15 mmol/ (Sodium Chloride) 255 mls @ 63.75 mls/hr IV ASDIR PRN PRN Reason: Serum Phos < 0.5 Vancomycin HCl 750 mg/ Sodium (Chloride) 250 mls @ 250 mls/hr IVPB 0800,2000 [facility] Last Admin: 08/22/18 08:16 Dose: 250 mls Potassium Chloride/Dextrose/Sod Cl (D5 1/2 Ns W/20 Meq Kcl) 1,000 mls @ 70 mls/ hr IV .[id number] [facility] Last Admin: 08/22/18 03:33 Dose: 1,000 mls Loratadine (Claritin) 10 mg PER TUBE DAILYPRN PRN PRN Reason: Sinus Symptoms Magnesium Oxide (Magnesium Oxide) 400 mg PO BIDPRN PRN PRN Reason: FOR SERUM MAG 1.4 - 2.0 Magnesium Oxide (Magnesium Oxide) 800 mg PO PRN PRN PRN Reason: FOR SERUM MAG < 1.4 Methylprednisolone Sodium Succinate (Solu-Medrol) 20 mg IVP Q8HR [facility] Last Admin: 08/22/18 05:35 Dose: 20 mg Metoclopramide HCl (Reglan) 5 mg IVP Q4H PRN PRN Reason: Nausea Mineral Oil/White Petrolatum (Eucerin Cream) 0 gm TOP BIDPRN PRN PRN Reason: Dry Skin Miscellaneous Medication (Pharmacy To Dose) 1 each IVPB PRN PRN PRN Reason: Pharmacy to dose Miscellaneous Medication (Phos-Nak) 1 pkt PO TIDPRN PRN PRN Reason: FOR PHOS LEVEL 1.0 - 1.8 Miscellaneous Medication (Phos-Nak) 2 pkt PO TIDPRN PRN PRN Reason: FOR PHOS LEVEL 0.5 - 1.0 Nicotine (Nicoderm Patch) 14 mg TD Q24HR [facility] Last Admin: 08/21/18 14:31 Dose: 14 mg Ccu Electrolyte (Replacement Protocol) 0 each FS PRN PRN PRN Reason: FOR ELECTROLYTE REPLACEMENT Ondansetron HCl (Zofran) 4 mg IVP Q6H PRN PRN Reason: Nausea/Vomiting Potassium Chloride (K-Dur) 40 meq PO ASDIR PRN PRN Reason: FOR SERUM K+ 2.5 - 3.5 Potassium Chloride (Klor-Con) 40 meq PER TUBE ASDIR PRN PRN Reason: FOR SERUM K+ 2.5-3.5 Sodium Bicarbonate (Bicarbonate, Sodium) 650 mg PER TUBE PRN PRN PRN Reason: Pharmacy to dose Sodium Chloride ([place] Nasal [place] 0.65%) 0 ml EA NARE QIDPRN PRN PRN Reason: Nasal Congestion
[2018-08-22] MEDS: Aspirin Chewable 81 MG TAB PER TUBE SCH (11:40)
[2018-08-22] MEDS: Nicotine 14 MG PATCH TD SCH (14:21)
--- NOTE | 2018-08-22 16:46 | PRG ---
DATE OF SERVICE: 08/22/2018 SUBJECTIVE: Hiro Wright stable overnight. He is deemed stable to move out of Critical Care Unit. OBJECTIVE: VITAL SIGNS: He is afebrile. Heart rates in the 80s, respiratory rate 16, oximetry is 97%, blood pressure 147/74. Lungs, heart, and abdomen are unchanged. IMPRESSION: The issue at hand is the family's decision whether not to place a PEG and whether or not to get hospice involved to take him home. He keeps pulling out his gastric tube, which will continue to be an issue until this decision is made. Antimicrobial therapy can be simplified. Job ID: [id number]
[2018-08-22] MEDS: Amoxicillin/Potassium Clav 875 MG TAB PO SCH (23:14)
[2018-08-22] MEDS: Atorvastatin Calcium 10 MG TAB PER TUBE SCH (23:14)
--- NOTE | 2018-08-23 00:14 | RAD ---
AP ABDOMINAL RADIOGRAPH 08/22/18 HISTORY: Post nasogastric tube placement. COMPARISON: 08/21/18. FINDINGS: Nasogastric tube is again noted in place with the tip overlying the expected location of the proximal body of the stomach. Bowel gas pattern is nonspecific with mild dilated loop of small bowel in the r ight abdomen. Multilevel degenerative changes seen in the spine with convexed curvature of the thorac olumbar spine. Increased interstitial and parenchymal opacities are seen at each lung base which woul d be better evaluated on chest x-ray. No interval change. IMPRESSION: 1. Nasogastric tube remains in place with tip overlying the expected location of the body of the stomach. There is mild gaseous distention and dilatation of a small bowel loop in the right abdomen. 2. Increased interstitial and patchy parenchymal air space opacity throughout the lungs bilatera lly. This would be better evaluated with chest x-ray. POS: SHAMIKA
[2018-08-23] MEDS: Famotidine/PF 20 mg/2ml Vial SLOW IVP SCH ×2 (09:07→20:50)
[2018-08-23] MEDS: Aspirin Chewable 81 MG TAB PER TUBE SCH (09:07)
[2018-08-23] MEDS: Enoxaparin Sodium 40 MG/0.4 ML SYRINGE SC SCH (09:07)
[2018-08-23] MEDS: predniSONE 20 MG TAB PO SCH (09:07)
[2018-08-23] MEDS: Amoxicillin/Potassium Clav 875 MG TAB PO SCH ×2 (09:07→20:50)
--- NOTE | 2018-08-23 10:51 | PDOC.PN ---
- Subjective Encounter Start Date: 08/23/18 Encounter Start Time: 07:00 Patient seen and examined. No new complaints. No overnight events he has NG tube on feeding - Objective Resuscitation Status - Order Detail: 08/15/18 14:03 Resuscitation Status Routine Resuscitation Status: FULL: Full Resuscitation MAR Reviewed: Yes Vital Signs & Weight: Vital Signs (12 hours) Temp Pulse Resp BP Pulse Ox 08/23/18 08:58 96.7 F L 107 H 20 122/58 L 92 L 08/23/18 06:11 91 16 94 L 08/23/18 04:41 107 H 08/23/18 04:37 97.7 F 70 18 145/65 H 93 L 08/23/18 02:41 95 08/23/18 00:29 97.4 F L 92 18 158/71 H 94 L 08/22/18 22:51 90 16 94 L Weight Admit Weight 115 lb 1.28 oz Weight 119 lb 14.4 oz Most Recent Monitor Data Heart Rate from ECG 86 NIBP 147/78 NIBP BP-Mean 101 Respiration from ECG 15 SpO2 91 I&O: 08/22/18 08/23/18 08/24/18 06:59 06:59 06:59 Intake Total 2829 2200 Output Total 2860 2980 Balance -31 -780 Result Diagrams: 08/21/18 07:30 08/21/18 07:30 Phys Exam - Physical Examination Constitutional: NAD HEENT: PERRLA, moist MMs, sclera anicteric NG tube+ Neck: no JVD, supple Respiratory: no wheezing, no rales, no rhonchi Cardiovascular: RRR, no significant murmur, no rub Gastrointestinal: soft, non-tender, no distention, positive bowel sounds Musculoskeletal: no edema right AKA Lymphatic: no nodes Psychiatric: normal affect Skin: no rash, normal turgor Dx/Plan (1) Acute respiratory failure with hypoxia Code(s): J96.01 - ACUTE RESPIRATORY FAILURE WITH HYPOXIA Status: Resolved Comment: extubated 07/20/2018 (2) Bacterial pneumonia Code(s): J15.9 - UNSPECIFIED BACTERIAL PNEUMONIA Status: Acute (3) COPD (chronic obstructive pulmonary disease) Status: Chronic Qualifiers: COPD type: COPD with acute exacerbation Qualified Code(s): J44.1 - Chronic obstructive pulmonary disease with (acute) exacerbation (4) Dyslipidemia Code(s): E78.5 - HYPERLIPIDEMIA, UNSPECIFIED Status: Chronic (5) Moderate protein-calorie malnutrition Code(s): E44.0 - MODERATE PROTEIN-CALORIE MALNUTRITION Status: Chronic (6) Peripheral vascular disease Code(s): I73.9 - PERIPHERAL VASCULAR DISEASE, UNSPECIFIED Status: Chronic Comment: no acute ischemia of remaining leg per Dr. Whatley (7) Tobacco abuse disorder Code(s): Z72.0 - TOBACCO USE Status: Chronic (8) Lactic acidosis Code(s): E87.2 - ACIDOSIS Status: Resolved (9) Septic shock Code(s): A41.9 - SEPSIS, UNSPECIFIED ORGANISM; R65.21 - SEVERE SEPSIS WITH SEPTIC SHOCK Status: Resolved Comment: (10) Oropharyngeal dysphagia Code(s): R13.12 - DYSPHAGIA, OROPHARYNGEAL PHASE Status: Acute - Plan cont current plan of care, plan discussed w/ family, continue antibiotics, social media strategist * i spoke with sister bedside, she is not interested in hospice at this time * she is agreed with peg tube placement * so will consult GI for Peg tube * after peg tube will start tube feeding * continue augmentin and prednisone * therapeutic case manager is working on placement * expecting discharge on tuesday08/25/18 * medication reviewed as below * symptomatic treatment Review of Systems - Review of Systems Other: not reliable with pt due to his cognitive status - Medications/Allergies Allergies/Adverse Reactions: Allergies Allergy/AdvReac Type Severity Reaction Status Date / Time No Known Allergies Allergy Verified 08/15/18 17:15 Medications: Current Medications Acetaminophen (Tylenol) 650 mg PER TUBE Q4H PRN PRN Reason: Headache/Fever/Mild Pain (1-3) Last Admin: 08/22/18 23:15 Dose: 650 mg Albuterol/Ipratropium (Duoneb) 3 ml NEB [id number] BRYANNA Last Admin: 08/23/18 06:11 Dose: 3 ml Amoxicillin/Clavulanate Potassium (Augmentin) 875 mg PO Q12HR [facility] Last Admin: 08/23/18 09:07 Dose: 875 mg Lipase/Protease/[place]ylase ([place] [id number]) 1 cap PO PRN PRN PRN Reason: Pharmacy to dose Artificial Tears (Tears Renewed 15ml Bottle) 2 drop EA EYE PRN PRN PRN Reason: Dry Eyes Aspirin (Aspirin Chewable) 81 mg PER TUBE DAILY [facility] Last Admin: 08/23/18 09:07 Dose: 81 mg Atorvastatin Calcium (Lipitor) 10 mg PER TUBE HS [facility] Last Admin: 08/22/18 23:14 Dose: 10 mg Bisacodyl (Dulcolax) 10 mg [place] DAILYPRN PRN PRN Reason: Constipation Enoxaparin Sodium (Lovenox) 40 mg SC 0900 [facility] Last Admin: 08/23/18 09:07 Dose: 40 mg Famotidine (Pepcid) 20 mg SLOW IVP Q12HR [facility] Last Admin: 08/23/18 09:07 Dose: 20 mg Guaifenesin (Robitussin Sf) 200 mg PER TUBE Q4H PRN PRN Reason: Cough Hydralazine HCl (Apresoline) 10 mg SLOW IVP Q4H PRN PRN Reason: SBP > 180 and HR < 70 Potassium Chloride 40 meq/ (Sodium Chloride) 270 mls @ 135 mls/hr IVPB ASDIR PRN PRN Reason: FOR SERUM K+ 2.5 - 3.5 Last Admin: 08/20/18 14:07 Dose: 270 mls Potassium Chloride 40 meq/ (Device) 100 mls @ 50 mls/hr IVPB ASDIR PRN PRN Reason: FOR SERUM K+ 2.5 - 3.5 Last Admin: 08/18/18 06:27 Dose: 100 mls Magnesium Sulfate 1 gm/ Sodium (Chloride) 102 mls @ 102 mls/hr IV PRN PRN PRN Reason: MAG LEVEL 1.4 - 2.0 Magnesium Sulfate 2 gm/ Device 50 mls @ 50 mls/hr IVPB ASDIR PRN PRN Reason: MAGNESIUM < 1.4 Potassium Phosphate 9 mmol/ (Sodium Chloride) 103 mls @ 25.75 mls/hr IVPB ASDIR PRN PRN Reason: Phosphate 1.0-1.8 Potassium Phosphate 12 mmol/ (Sodium Chloride) 254 mls @ 63.5 mls/hr IV ASDIR PRN PRN Reason: Serum phosphate 0.5-0.9 Potassium Phosphate 15 mmol/ (Sodium Chloride) 255 mls @ 63.75 mls/hr IV ASDIR PRN PRN Reason: Serum Phos < 0.5 Potassium Chloride/Dextrose/Sod Cl (D5 1/2 Ns W/20 Meq Kcl) 1,000 mls @ 70 mls/ hr IV .[id number] [facility] Last Admin: 08/22/18 21:55 Dose: 1,000 mls Loratadine (Claritin) 10 mg PER TUBE DAILYPRN PRN PRN Reason: Sinus Symptoms Magnesium Oxide (Magnesium Oxide) 400 mg PO BIDPRN PRN PRN Reason: FOR SERUM MAG 1.4 - 2.0 Magnesium Oxide (Magnesium Oxide) 800 mg PO PRN PRN PRN Reason: FOR SERUM MAG < 1.4 Metoclopramide HCl (Reglan) 5 mg IVP Q4H PRN PRN Reason: Nausea Mineral Oil/White Petrolatum (Eucerin Cream) 0 gm TOP BIDPRN PRN PRN Reason: Dry Skin Miscellaneous Medication (Phos-Nak) 1 pkt PO TIDPRN PRN PRN Reason: FOR PHOS LEVEL 1.0 - 1.8 Miscellaneous Medication (Phos-Nak) 2 pkt PO TIDPRN PRN PRN Reason: FOR PHOS LEVEL 0.5 - 1.0 Nicotine (Nicoderm Patch) 14 mg TD Q24HR [facility] Last Admin: 08/22/18 14:21 Dose: 14 mg Ccu Electrolyte (Replacement Protocol) 0 each FS PRN PRN PRN Reason: FOR ELECTROLYTE REPLACEMENT Ondansetron HCl (Zofran) 4 mg IVP Q6H PRN PRN Reason: Nausea/Vomiting Potassium Chloride (K-Dur) 40 meq PO ASDIR PRN PRN Reason: FOR SERUM K+ 2.5 - 3.5 Potassium Chloride (Klor-Con) 40 meq PER TUBE ASDIR PRN PRN Reason: FOR SERUM K+ 2.5-3.5 Prednisone (Prednisone) 40 mg PO QA-[facility] Last Admin: 08/23/18 09:07 Dose: 40 mg Sodium Bicarbonate (Bicarbonate, Sodium) 650 mg PER TUBE PRN PRN PRN Reason: Pharmacy to dose Sodium Chloride ([place] Nasal [place] 0.65%) 0 ml EA NARE QIDPRN PRN PRN Reason: Nasal Congestion
[2018-08-23] MEDS: D5 1/2 NS w/20 mEq KCL 1,000 ML IV SCH ×2 (12:21→21:18)
[2018-08-23] MEDS: Nicotine 14 MG PATCH TD SCH (16:30)
--- NOTE | 2018-08-23 20:34 | CON ---
DATE OF CONSULTATION: HISTORY OF PRESENT ILLNESS: The patient is a 78-year-old gentleman, who presented back on 08/15/2018, with acute respiratory failure with hypoxia, septic shock, and metabolic acidosis. This is felt secondary to possible aspiration pneumonia. He has not since passed a swallowing study. He is not safe for any solid food consistency or liquid food consistencies. Presently, he is being fed by nasogastric tube. PAST MEDICAL HISTORY: Significant for hypertension, hyperlipidemia, polio, peripheral vascular disease, and chronic obstructive pulmonary disease. PAST SURGICAL HISTORY: Includes back surgery, leg amputation, right hip surgery, stent placement, and exploratory laparotomy for unknown reasons. SOCIAL HISTORY: The patient is a smoker. Does not drink alcohol. FAMILY HISTORY: Negative for GI or liver disease. REVIEW OF SYSTEMS: Ten systems were reviewed and were negative except for above. HOME MEDICATIONS: Prior to admission include: 1. Aspirin 81 mg p.o. daily. 2. Atorvastatin 10 mg p.o. at bedtime. 3. Metoprolol 25 mg p.o. b.i.d. ALLERGIES: NO KNOWN MEDICAL ALLERGIES. PHYSICAL EXAMINATION: GENERAL: Shows a well-developed, well-nourished white male, in no acute distress. VITAL SIGNS: Temperature 97.9, pulse 111, respiratory rate 18, and blood pressure 117/58. HEENT: Significant for nasogastric tube into place. He is edentulous. CHEST: Clear. CARDIOVASCULAR: Regular rate and rhythm. ABDOMEN: Soft and nontender with a well-healed laparotomy scar. EXTREMITIES: Normal except for his previous amputation. LABORATORY DATA: Shows white blood cell count of 8.4, hemoglobin 9.2, hematocrit 28.3. Chemistry show a CO2 of 22, creatinine 0.61, and glucose 111. ASSESSMENT: 1. Oropharyngeal dysphagia. 2. Aspiration pneumonia. 3. History of polio. RECOMMENDATIONS: PEG in a.m. Job ID: [id number]
[2018-08-23] MEDS: Atorvastatin Calcium 10 MG TAB PER TUBE SCH (20:50)
[2018-08-24] MEDS: D5 1/2 NS w/20 mEq KCL 1,000 ML IV SCH ×3 (02:16→21:10)
--- NOTE | 2018-08-24 09:46 | PDOC.PN ---
- Subjective Encounter Start Date: 08/24/18 Encounter Start Time: 07:00 Patient seen and examined. No new complaints. No overnight events - Objective Resuscitation Status - Order Detail: 08/15/18 14:03 Resuscitation Status Routine Resuscitation Status: FULL: Full Resuscitation MAR Reviewed: Yes Vital Signs & Weight: Vital Signs (12 hours) Temp Pulse Resp BP Pulse Ox 08/24/18 08:11 97.5 F L 104 H 18 140/65 90 L 08/24/18 07:55 91 L 08/24/18 04:40 97.6 F 99 16 136/63 94 L 08/24/18 02:36 93 L 08/23/18 23:16 97.4 F L 105 H 20 135/63 99 Weight Admit Weight 115 lb 1.28 oz Weight 119 lb 4 oz Most Recent Monitor Data Heart Rate from ECG 86 NIBP 147/78 NIBP BP-Mean 101 Respiration from ECG 15 SpO2 91 I&O: 08/23/18 08/24/18 08/25/18 06:59 06:59 06:59 Intake Total 2200 1540 Output Total 2980 1150 Balance -780 390 Result Diagrams: 08/21/18 07:30 08/21/18 07:30 Phys Exam - Physical Examination Constitutional: NAD HEENT: PERRLA, moist MMs, sclera anicteric NG tube+ Neck: no JVD, supple Respiratory: no wheezing, no rales, no rhonchi Cardiovascular: RRR, no significant murmur, no rub Gastrointestinal: soft, non-tender, no distention, positive bowel sounds Musculoskeletal: no edema, pulses present right AKA Lymphatic: no nodes Psychiatric: normal affect Skin: no rash, normal turgor Dx/Plan (1) Acute respiratory failure with hypoxia Code(s): J96.01 - ACUTE RESPIRATORY FAILURE WITH HYPOXIA Status: Resolved Comment: extubated 07/20/2018 (2) Bacterial pneumonia Code(s): J15.9 - UNSPECIFIED BACTERIAL PNEUMONIA Status: Acute (3) COPD (chronic obstructive pulmonary disease) Status: Chronic Qualifiers: COPD type: COPD with acute exacerbation Qualified Code(s): J44.1 - Chronic obstructive pulmonary disease with (acute) exacerbation (4) Dyslipidemia Code(s): E78.5 - HYPERLIPIDEMIA, UNSPECIFIED Status: Chronic (5) Moderate protein-calorie malnutrition Code(s): E44.0 - MODERATE PROTEIN-CALORIE MALNUTRITION Status: Chronic (6) Peripheral vascular disease Code(s): I73.9 - PERIPHERAL VASCULAR DISEASE, UNSPECIFIED Status: Chronic Comment: no acute ischemia of remaining leg per Dr. Whatley (7) Tobacco abuse disorder Code(s): Z72.0 - TOBACCO USE Status: Chronic (8) Lactic acidosis Code(s): E87.2 - ACIDOSIS Status: Resolved (9) Septic shock Code(s): A41.9 - SEPSIS, UNSPECIFIED ORGANISM; R65.21 - SEVERE SEPSIS WITH SEPTIC SHOCK Status: Resolved Comment: (10) Oropharyngeal dysphagia Code(s): R13.12 - DYSPHAGIA, OROPHARYNGEAL PHASE Status: Acute - Plan cont current plan of care, plan discussed w/ family, continue antibiotics, director of social work * today PEG tube * discharge planning to SNU * continue antibiotics as per below * expecting discharge tomorrow if placement arranged * discussed with family bedside * medication reviewed as below * symptomatic treatment. Review of Systems - Review of Systems Other: not reliable with pt due to level of his cognitive status - Medications/Allergies Allergies/Adverse Reactions: Allergies Allergy/AdvReac Type Severity Reaction Status Date / Time No Known Allergies Allergy Verified 08/15/18 17:15 Medications: Current Medications Acetaminophen (Tylenol) 650 mg PER TUBE Q4H PRN PRN Reason: Headache/Fever/Mild Pain (1-3) Last Admin: 08/22/18 23:15 Dose: 650 mg Albuterol/Ipratropium (Duoneb) 3 ml NEB [id number] [facility] Last Admin: 08/24/18 07:55 Dose: 3 ml Amoxicillin/Clavulanate Potassium (Augmentin) 875 mg PO Q12HR [facility] Last Admin: 08/23/18 20:50 Dose: 875 mg Lipase/Protease/Amylase ([place] [id number]) 1 cap PO PRN PRN PRN Reason: Pharmacy to dose Artificial Tears (Tears Renewed 15ml Bottle) 2 drop EA EYE PRN PRN PRN Reason: Dry Eyes Aspirin (Aspirin Chewable) 81 mg PER TUBE DAILY [facility] Last Admin: 08/23/18 09:07 Dose: 81 mg Atorvastatin Calcium (Lipitor) 10 mg PER TUBE HS [facility] Last Admin: 08/23/18 20:50 Dose: 10 mg Bisacodyl (Dulcolax) 10 mg [place] DAILYPRN PRN PRN Reason: Constipation Enoxaparin Sodium (Lovenox) 40 mg SC 0900 [facility] Last Admin: 08/23/18 09:07 Dose: 40 mg Famotidine (Pepcid) 20 mg SLOW IVP Q12HR [facility] Last Admin: 08/23/18 20:50 Dose: 20 mg Guaifenesin (Robitussin Sf) 200 mg PER TUBE Q4H PRN PRN Reason: Cough Hydralazine HCl (Apresoline) 10 mg SLOW IVP Q4H PRN PRN Reason: SBP > 180 and HR < 70 Potassium Chloride 40 meq/ (Sodium Chloride) 270 mls @ 135 mls/hr IVPB ASDIR PRN PRN Reason: FOR SERUM K+ 2.5 - 3.5 Last Admin: 08/20/18 14:07 Dose: 270 mls Potassium Chloride 40 meq/ (Device) 100 mls @ 50 mls/hr IVPB ASDIR PRN PRN Reason: FOR SERUM K+ 2.5 - 3.5 Last Admin: 08/18/18 06:27 Dose: 100 mls Magnesium Sulfate 1 gm/ Sodium (Chloride) 102 mls @ 102 mls/hr IV PRN PRN PRN Reason: MAG LEVEL 1.4 - 2.0 Magnesium Sulfate 2 gm/ Device 50 mls @ 50 mls/hr IVPB ASDIR PRN PRN Reason: MAGNESIUM < 1.4 Potassium Phosphate 9 mmol/ (Sodium Chloride) 103 mls @ 25.75 mls/hr IVPB ASDIR PRN PRN Reason: Phosphate 1.0-1.8 Potassium Phosphate 12 mmol/ (Sodium Chloride) 254 mls @ 63.5 mls/hr IV ASDIR PRN PRN Reason: Serum phosphate 0.5-0.9 Potassium Phosphate 15 mmol/ (Sodium Chloride) 255 mls @ 63.75 mls/hr IV ASDIR PRN PRN Reason: Serum Phos < 0.5 Potassium Chloride/Dextrose/Sod Cl (D5 1/2 Ns W/20 Meq Kcl) 1,000 mls @ 70 mls/ hr IV .[id number] [facility] Last Admin: 08/24/18 02:16 Dose: 1,000 mls Loratadine (Claritin) 10 mg PER TUBE DAILYPRN PRN PRN Reason: Sinus Symptoms Magnesium Oxide (Magnesium Oxide) 400 mg PO BIDPRN PRN PRN Reason: FOR SERUM MAG 1.4 - 2.0 Magnesium Oxide (Magnesium Oxide) 800 mg PO PRN PRN PRN Reason: FOR SERUM MAG < 1.4 Metoclopramide HCl (Reglan) 5 mg IVP Q4H PRN PRN Reason: Nausea Mineral Oil/White Petrolatum (Eucerin Cream) 0 gm TOP BIDPRN PRN PRN Reason: Dry Skin Miscellaneous Medication (Phos-Nak) 1 pkt PO TIDPRN PRN PRN Reason: FOR PHOS LEVEL 1.0 - 1.8 Miscellaneous Medication (Phos-Nak) 2 pkt PO TIDPRN PRN PRN Reason: FOR PHOS LEVEL 0.5 - 1.0 Nicotine (Nicoderm Patch) 14 mg TD Q24HR [facility] Last Admin: 08/23/18 16:30 Dose: 14 mg Ccu Electrolyte (Replacement Protocol) 0 each FS PRN PRN PRN Reason: FOR ELECTROLYTE REPLACEMENT Ondansetron HCl (Zofran) 4 mg IVP Q6H PRN PRN Reason: Nausea/Vomiting Potassium Chloride (K-Dur) 40 meq PO ASDIR PRN PRN Reason: FOR SERUM K+ 2.5 - 3.5 Potassium Chloride (Klor-Con) 40 meq PER TUBE ASDIR PRN PRN Reason: FOR SERUM K+ 2.5-3.5 Prednisone (Prednisone) 40 mg PO QAM-WM [facility] Last Admin: 08/23/18 09:07 Dose: 40 mg Sodium Bicarbonate (Bicarbonate, Sodium) 650 mg PER TUBE PRN PRN PRN Reason: Pharmacy to dose Sodium Chloride ([place] Nasal [place] 0.65%) 0 ml EA NARE QIDPRN PRN PRN Reason: Nasal Congestion
[2018-08-24] MEDS ORDERED: Lidocaine 1% PF 5 ML VIAL ONE (12:19)
[2018-08-24] MEDS ORDERED: PROPOFOL 200 MG/20 ML VIAL ONE (12:19)
[2018-08-24] MEDS ORDERED: Ondansetron HCl/PF 4 MG/2 ML Vial IVP PRN (16:33)
--- NOTE | 2018-08-24 16:48 | OP ---
DATE OF PROCEDURE: 08/24/2018 ASSISTANCE SURGEON: None. PROCEDURE PERFORMED: Esophagogastroduodenoscopy with percutaneous endoscopic gastrostomy tube placement. INDICATION: Oropharyngeal dysphagia. MEDICATIONS: 1. See Anesthesia record. 2. Ancef 2 g IV for periprocedural prophylaxis. FINDINGS: After discussion of the risks, benefits, and alternatives of the procedure, informed consent was obtained and witnessed. Pre-endoscopic cardiopulmonary examination was satisfactory. A time-out was performed before sedation was achieved. Sedation was achieved with Anesthesia assistance in the endoscopy unit. A Pentax adult upper endoscope was placed into the oropharynx and passed through the cricopharyngeus under direct visualization. The esophageal mucosa appeared normal throughout. The endoscope was advanced into the stomach. Forward and retroflexed views of the entire gastric mucosa were obtained. The gastric mucosa appeared normal. The endoscope was advanced through the pylorus and into the first and second portions of the duodenum, which also appeared normal. At this point, the endoscope was withdrawn back into the stomach using one-to-one pressure and the transillumination techniques, suitable site for PEG placement was easily located in the left upper quadrant. The site was prepped and draped in a sterile fashion. The site was anesthetized with subcutaneous lidocaine. A 1-cm vertical incision was then made, and the introducer needle and catheter were introduced transcutaneously into the gastric lumen. The wire was passed through the catheter and grasped with a snare. The wire was then withdrawn out of the mouth. A 20-Latvian traction PEG tube was affixed to the wire and was pulled through into position in the standard fashion with no difficulty. The external bumper clamp and external ports were then affixed to the tube. The esophagus was reintubated and the internal bumper was examined and found to be in good position. The external bumper was placed at a distance of 2 cm. The endoscope was then completely withdrawn, and the patient allowed to recover. The patient tolerated the procedure well. There were no immediate postprocedure complications. IMPRESSION: Successful placement of 20-Latvian PEG tube to the left upper quadrant, with external bumper at 2 cm. RECOMMENDATIONS: 1. Flush tube regularly. 2. Can use the tube for medications now. 3. Can use the tube for feeds in 4 hours. 4. We will plan to come by tomorrow to check the PEG site and likely loosen the external bumper slightly. Job ID: [id number]
[2018-08-24] MEDS: predniSONE 20 MG TAB PO SCH (17:58)
[2018-08-24] MEDS: Amoxicillin/Potassium Clav 875 MG TAB PO SCH ×2 (17:59→21:09)
[2018-08-24] MEDS: Aspirin Chewable 81 MG TAB PER TUBE SCH (17:59)
[2018-08-24] MEDS: Enoxaparin Sodium 40 MG/0.4 ML SYRINGE SC SCH (17:59)
[2018-08-24] MEDS: Famotidine/PF 20 mg/2ml Vial SLOW IVP SCH ×2 (17:59→21:09)
[2018-08-24] MEDS ORDERED: Nicotine 14 MG PATCH TD SCH (21:00)
[2018-08-24] MEDS: Atorvastatin Calcium 10 MG TAB PER TUBE SCH (21:09)
[2018-08-24] MEDS: Nicotine 14 MG PATCH TD SCH (23:39)
[2018-08-25] MEDS: predniSONE 20 MG TAB PO SCH (08:56)
[2018-08-25] MEDS: Amoxicillin/Potassium Clav 875 MG TAB PO SCH (08:56)
[2018-08-25] MEDS: Enoxaparin Sodium 40 MG/0.4 ML SYRINGE SC SCH (09:00)
[2018-08-25] MEDS: Aspirin Chewable 81 MG TAB PER TUBE SCH (09:00)
[2018-08-25] MEDS: Famotidine/PF 20 mg/2ml Vial SLOW IVP SCH (09:00)
[2018-08-25] MEDS ORDERED: Metoprolol Tartrate 25 MG TAB PER TUBE SCH (09:00)
--- NOTE | 2018-08-25 09:01 | PRG ---
DATE OF SERVICE: 08/25/2018 SUBJECTIVE: Mr. Wright is doing okay this morning, minimal soreness to the PEG site. He had some mild bleeding from the site yesterday evening, but this appears to have stopped. He is tolerating his tube feeds. I adjusted the external bumper to a distance of 2.5 cm, and this appears to be a good position for him. GI will sign off, but please call anytime with questions or concerns. Job ID: [id number]
[2018-08-25] MEDS ORDERED: Fluconazole 100 MG TAB PER TUBE SCH (10:15)
[2018-08-25] MEDS ORDERED: Nystatin 500,000 UNITS/5 ML UDCUP PO PRN (10:45)
[2018-08-25 11:03] LABS: #Eosinphils 0.2 thou/uL (0.0-0.7); #Lymphocytes 0.8 thou/uL (1.20-3.40); #Monocytes 0.4 thou/uL (0.11-0.59); #Neutrophils 14.1 thou/uL (1.40-6.50); %Eosinophils 1.1 % (0.0-10.0); %Monocytes 2.3 % (0.0-10.0); %Neutrophils 91.5 % (42.0-75.0); Hemoglobin 8.5 g/dL (14.0-18.0); Mean Corpuscular Hemoglobin 29.4 pg (27.0-31.0); Mean Corpuscular Volume 91.9 fL (78.0-98.0); Mean Platelet Volume 7.4 fL (7.4-10.4); Platelet Count 248 thou/uL (130-400); White Blood Cell (WBC) Count 15.4 thou/uL (4.8-10.8)
[2018-08-25 11:27] LABS: ALT (SGPT) 16 U/L (8-55); AST (SGOT) 23 U/L (5-34); Albumin 2.6 g/dL (3.4-4.8); Alkaline Phosphatase 68 U/L (40-150); Anion Gap 12 mmol/L (10-20); BUN (Urea Nitrogen) 8 mg/dL (8.4-25.7); Bilirubin, Total 1.1 mg/dL (0.2-1.2); Calc. Creatinine Clearance 86 mL/min (70-130); Calcium 8.5 mg/dL (7.8-10.44); Carbon Dioxide 23 mmol/L (23-31); Chloride 106 mmol/L (98-107); Estimated GFR-MDRD Greater than 90; Globulin 2.4 g/dL (2.4-3.5); Glucose 125 mg/dL (83-110); Magnesium 1.5 mg/dL (1.6-2.6); Phosphorus 2.7 mg/dL (2.3-4.7); Potassium 3.6 mmol/L (3.5-5.1); Sodium 137 mmol/L (136-145)
[2018-08-25 14:02] VITALS: BP 114/52; TEMP 97.4
--- NOTE | 2018-08-25 14:14 | PDOC.PN ---
- Subjective Encounter Start Date: 08/25/18 Encounter Start Time: 07:15 pt has oral thrush - Objective Resuscitation Status - Order Detail: 08/15/18 14:03 Resuscitation Status Routine Resuscitation Status: FULL: Full Resuscitation MAR Reviewed: Yes Vital Signs & Weight: Vital Signs (12 hours) Temp Pulse Resp BP Pulse Ox 08/25/18 12:05 97.4 F L 108 H 20 114/52 L 93 L 08/25/18 11:04 112 H 18 96 08/25/18 08:31 97.7 F 105 H 18 108/56 L 96 08/25/18 08:00 96 08/25/18 07:44 97 18 95 08/25/18 04:30 97.5 F L 110 H 20 130/59 L 95 Weight Admit Weight 115 lb 1.28 oz Weight 117 lb 14.4 oz Most Recent Monitor Data Heart Rate from ECG 86 NIBP 147/78 NIBP BP-Mean 101 Respiration from ECG 15 SpO2 91 I&O: 08/24/18 08/25/18 08/26/18 06:59 06:59 06:59 Intake Total 1540 1237 Output Total 2750 1850 Balance -1210 -613 Result Diagrams: 08/25/18 10:40 08/25/18 10:40 Phys Exam - Physical Examination Constitutional: NAD HEENT: PERRLA, sclera anicteric oral thrush Neck: no JVD, supple Respiratory: no wheezing, no rales, no rhonchi Cardiovascular: RRR, no significant murmur, no rub Gastrointestinal: soft, non-tender, no distention, positive bowel sounds PEG+ Musculoskeletal: no edema, pulses present right AKA Neurological: non-focal Lymphatic: no nodes Psychiatric: normal affect Skin: no rash, normal turgor Dx/Plan (1) Acute respiratory failure with hypoxia Code(s): J96.01 - ACUTE RESPIRATORY FAILURE WITH HYPOXIA Status: Resolved Comment: extubated 07/20/2018 (2) Bacterial pneumonia Code(s): J15.9 - UNSPECIFIED BACTERIAL PNEUMONIA Status: Acute (3) COPD (chronic obstructive pulmonary disease) Status: Chronic Qualifiers: COPD type: COPD with acute exacerbation Qualified Code(s): J44.1 - Chronic obstructive pulmonary disease with (acute) exacerbation (4) Dyslipidemia Code(s): E78.5 - HYPERLIPIDEMIA, UNSPECIFIED Status: Chronic (5) Moderate protein-calorie malnutrition Code(s): E44.0 - MODERATE PROTEIN-CALORIE MALNUTRITION Status: Chronic (6) Peripheral vascular disease Code(s): I73.9 - PERIPHERAL VASCULAR DISEASE, UNSPECIFIED Status: Chronic Comment: no acute ischemia of remaining leg per Dr. Whatley (7) Tobacco abuse disorder Code(s): Z72.0 - TOBACCO USE Status: Chronic (8) Lactic acidosis Code(s): E87.2 - ACIDOSIS Status: Resolved (9) Septic shock Code(s): A41.9 - SEPSIS, UNSPECIFIED ORGANISM; R65.21 - SEVERE SEPSIS WITH SEPTIC SHOCK Status: Resolved Comment: (10) Oropharyngeal dysphagia Code(s): R13.12 - DYSPHAGIA, OROPHARYNGEAL PHASE Status: Acute - Plan cont current plan of care, continue antibiotics, social service worker, speech therapy , respiratory therapy * nystatin swish and swallow * diflucan * await placement * tube feeding * continue antibiotics as below * medication reviewed as below * symptomatic treatment. Review of Systems - Review of Systems Respiratory: negative: Cough, Dry, Shortness of Breath, Hemoptysis, SOB with Excertion, Pleuritic Pain, Sputum, Wheezing Cardiovascular: negative: chest pain, palpitations, orthopnea, paroxysmal nocturnal dyspnea, edema, light headedness, other Gastrointestinal: negative: Nausea, Vomiting, Abdominal Pain, Diarrhea, Constipation, Melena, Hematochezia, Other Genitourinary: negative: Dysuria, Frequency, Incontinence, Hematuria, Retention , Other Musculoskeletal: negative: Neck Pain, Shoulder Pain, Arm Pain, Back Pain, Hand Pain, Leg Pain, Foot Pain, Other - Medications/Allergies Allergies/Adverse Reactions: Allergies Allergy/AdvReac Type Severity Reaction Status Date / Time No Known Allergies Allergy Verified 08/15/18 17:15 Medications: Current Medications Acetaminophen (Tylenol) 650 mg PER TUBE Q4H PRN PRN Reason: Headache/Fever/Mild Pain (1-3) Last Admin: 08/22/18 23:15 Dose: 650 mg Albuterol/Ipratropium (Duoneb) 3 ml NEB [id number] BRYANNA Last Admin: 08/25/18 11:04 Dose: 3 ml Amoxicillin/Clavulanate Potassium (Augmentin) 875 mg PO Q12HR BRYANNA Last Admin: 08/25/18 08:56 Dose: 875 mg Lipase/Protease/Amylase ([place] [id number]) 1 cap PO PRN PRN PRN Reason: Pharmacy to dose Artificial Tears (Tears Renewed 15ml Bottle) 2 drop EA EYE PRN PRN PRN Reason: Dry Eyes Aspirin (Aspirin Chewable) 81 mg PER TUBE DAILY [facility] Last Admin: 08/25/18 09:00 Dose: 81 mg Atorvastatin Calcium (Lipitor) 10 mg PER TUBE HS [facility] Last Admin: 08/24/18 21:09 Dose: 10 mg Bisacodyl (Dulcolax) 10 mg OK DAILYPRN PRN PRN Reason: Constipation Enoxaparin Sodium (Lovenox) 40 mg SC 0900 [facility] Last Admin: 08/25/18 09:00 Dose: 40 mg Famotidine (Pepcid) 20 mg SLOW IVP Q12HR [facility] Last Admin: 08/25/18 09:00 Dose: 20 mg Fluconazole (Diflucan) 100 mg PER TUBE DAILY [facility] Guaifenesin (Robitussin Sf) 200 mg PER TUBE Q4H PRN PRN Reason: Cough Hydralazine HCl (Apresoline) 10 mg SLOW IVP Q4H PRN PRN Reason: SBP > 180 and HR < 70 Loratadine (Claritin) 10 mg PER TUBE DAILYPRN PRN PRN Reason: Sinus Symptoms Metoclopramide HCl (Reglan) 5 mg IVP Q4H PRN PRN Reason: Nausea Metoprolol Tartrate (Lopressor) 25 mg PER TUBE BID [facility] Last Admin: 08/25/18 08:56 Dose: 25 mg Mineral Oil/White Petrolatum (Eucerin Cream) 0 gm TOP BIDPRN PRN PRN Reason: Dry Skin Nicotine (Nicoderm Patch) 14 mg TD Q24HR [facility] Last Admin: 08/24/18 22:17 Dose: 14 mg Nystatin (Mycostatin) 500,000 units PO Q4H PRN PRN Reason: THRUSH Last Admin: 08/25/18 10:50 Dose: 500,000 units Ondansetron HCl (Zofran) 4 mg IVP Q6H PRN PRN Reason: Nausea/Vomiting Prednisone (Prednisone) 40 mg PO QAM-WM [facility] Last Admin: 08/25/18 08:56 Dose: 40 mg Sodium Bicarbonate (Bicarbonate, Sodium) 650 mg PER TUBE PRN PRN PRN Reason: Pharmacy to dose Sodium Chloride ([place] Nasal [place] 0.65%) 0 ml EA NARE QIDPRN PRN PRN Reason: Nasal Congestion
--- NOTE | 2018-08-25 16:43 | DIS ---
DATE OF ADMISSION: 08/15/2018 DATE OF DISCHARGE: 08/25/2018 PRIMARY CARE PHYSICIAN: Dr. Carl Moran. DISCHARGE DISPOSITION: [facility]. PRIMARY DISCHARGE DIAGNOSES: 1. Bilateral pneumonia, bacterial. 2. Acute respiratory failure with hypoxia. 3. Septic shock. 4. Lactic acidosis. 5. Oropharyngeal dysphagia. 6. Status post percutaneous endoscopic gastrostomy tube placement. 7. Chronic obstructive pulmonary disease exacerbation. 8. Protein-calorie malnutrition. SECONDARY DISCHARGE DIAGNOSES: Tobacco abuse disorder, peripheral vascular disease, right [id number] amputation, dyslipidemia, and chronic obstructive pulmonary disease. PRIMARY PROCEDURE/OPERATION: Central line placement, endotracheal intubation and mechanical ventilatory support, PEG tube placement. RADIOLOGICAL INVESTIGATION: The patient had several chest x-rays while in the hospital. Echocardiography showed normal EF. SIGNIFICANT LABORATORY DATA: WBC 8.4, hemoglobin 8.5, platelet 248. Sodium 137 and creatinine 0.55. Blood culture positive for Corynebacterium, which was contaminant. Repeat blood culture negative. DISCHARGE MEDICATIONS: 1. DuoNeb q.6 hourly. 2. Augmentin 875 mg twice daily for 7 more days. 3. Aspirin 81 mg daily. 4. Lipitor 10 mg daily. 5. Pepcid 20 mg b.i.d. 6. Diflucan 100 mg daily for 5 days. 7. Nystatin 2 mL q.i.d. 8. Prednisone 20 mg per tube daily for 7 days. 9. Metoprolol 25 mg per tube b.i.d. 10. Florastor 250 mg daily. CONTRAINDICATION: None. CODE STATUS: Full code. INPATIENT CRITICAL CARE RN: Pulmonary group was following while in hospital. GI team was consulted for PEG tube placement. TEST RESULT PENDING ON DISCHARGE: None. ALLERGIES: NO KNOWN DRUG ALLERGIES. DISCHARGE PLAN: Posthospital, the patient is discharged to intermediate home. Subsequently, the patient will follow up with primary care physician. HOSPITAL COURSE: A 78-year-old male, who was admitted by me on August 15, 2018. Please see my HPI for further details. The patient was found down. He was unresponsive. He was brought to ER. He required intubation. He was brought to ER with intubation condition. The patient was having septic shock. He required central line placement. He was required fluid resuscitation. He was admitted in ICU, pulmonary group was consulted. Ventilator was managed by them. The patient will require vasopressor initially and subsequently vasopressor was turned off. The patient was given broad-spectrum antibiotic therapy with vancomycin and Zosyn. Solu-Medrol was also given. He was given optimum COPD treatment. He was eventually extubated. He was very weak. He was having oropharyngeal dysphagia. He failed several times swallow evaluation. We discussed with the family member about goal of care. The patient remained full code while in the hospital. After stabilization, we transferred him to medical floor. Family member agreed with PEG tube placement. GI was consulted and they did PEG tube during that. The patient was getting Dobbhoff tube feeding and nutrition. After PEG tube, we changed medication via PEG tube and PEG tube feeding. He was tolerating very well. This patient has significant physical deconditioning and requires placement and that is why we are discharging this patient to intermediate home. Paperwork for discharge done. Discharge medication reconciliation done. The patient had oral thrush on discharge and that is why Diflucan was started. The patient is seen and examined at bedside today. Please see my progress note from today for further details. TIME SPENT: Total time spent on discharge day, 32 minutes. Job ID: [id number] MTDD
[2018-08-26] MEDS ORDERED: Fluconazole 100 MG TAB PER TUBE SCH (09:00)
== END 2018-08-25 17:15 | DRG 871 ==
LOC: ERS 12:23 → CCU 15:04 → ONC 08-22 12:05
PROVIDERS: ADMIT Internal Medicine; ATTEND Internal Medicine
PROC: 5A1945Z Respiratory Ventilation, 24-96 Consecutive Hours (ICD-10-PCS; principal; 2018-08-15)
PROC: 02HV33Z Insertion of Infusion Device into Superior Vena Cava, Percutaneous Approach (ICD-10-PCS; 2018-08-15)
PROC: 3E033XZ Introduction of Vasopressor into Peripheral Vein, Percutaneous Approach (ICD-10-PCS; 2018-08-15)
PROC: 0DH63UZ Insertion of Feeding Device into Stomach, Percutaneous Approach (ICD-10-PCS; 2018-08-24)
DX: A41.9 Sepsis, unspecified organism (principal); R65.21 Severe sepsis with septic shock; J96.01 Acute respiratory failure with hypoxia; J15.9 Unspecified bacterial pneumonia; G93.41 Metabolic encephalopathy; E87.2 Acidosis; E44.0 Moderate protein-calorie malnutrition; Z68.1 Body mass index [BMI] 19.9 or less, adult; J44.1 Chronic obstructive pulmonary disease with (acute) exacerbation; G93.1 Anoxic brain damage, not elsewhere classified; B37.0 Candidal stomatitis; R13.12 Dysphagia, oropharyngeal phase; I10 Essential (primary) hypertension; E78.5 Hyperlipidemia, unspecified; I73.9 Peripheral vascular disease, unspecified; F17.210 Nicotine dependence, cigarettes, uncomplicated; Z99.3 Dependence on wheelchair; Z86.12 Personal history of poliomyelitis; Z79.82 Long term (current) use of aspirin; Z79.899 Other long term (current) drug therapy; Z89.611 Acquired absence of right leg above knee
CPT/HCPCS: 36415; 36556; 51702; 70450; 71045; 71275; 74018; 80048; 80053; 80202; 81003; 82533; 82805; 83605; 83735; 84100; 84443; 85007; 85025; 85027; 87040; 87070; 87086; 87149; 87205; 93306; 94002; 94003; 94640; 96365; 96366; 96368; 96375; 99292; J0456; J0696; J1650; J1956; J2001; J2060; J2543; J2704; J2920; J2930; J3010; J3370; J3480; J7050; J7620; Q9966; S0028

== ENCOUNTER 2018-09-12 09:37 | Outpatient (CLI) | payer MEDICARE ==
--- NOTE | 2018-09-13 14:34 | RAD ---
MODIFIED BARIUM SWALLOW: Date: 09/12/18 HISTORY: Pneumonitis due to inhalation of food and vomit. EXPOSURE: 0.57 mGy*cm^2. 44 seconds. FINDINGS: intraprocedural fluoroscopy was provided for the speech pathologist. Please refer to speech pathology report for feeding recommendation. IMPRESSION: Please refer to speech pathology report for feeding recommendations. POS: [facility]
== END 2018-09-12 09:38 | disposition home or self-care (01) ==
PROVIDERS: ATTEND Family Medicine
DX: R13.10 Dysphagia, unspecified (principal)
CPT/HCPCS: 74230